=== PATIENT | male | born 1965 | race Caucasian/White ===

== ENCOUNTER 2021-04-06 07:45 | Emergency (ER) | payer MEDICAID, OTHER, SELFPAY ==
[~2021-04-06] VITALS: Ht 170.2 cm; Wt 83.9 kg
[2021-04-06] MEDS ORDERED: ESCITALOPRAM (08:01)
[2021-04-06] MEDS ORDERED: WARF-23 (08:01)
[2021-04-06] MEDS ORDERED: GABA-282 (08:01)
[2021-04-06] MEDS ORDERED: HYDR12.55 (08:01)
[2021-04-06] MEDS ORDERED: LOSA25TA14 (08:01)
[2021-04-06] MEDS ORDERED: ONDANSETRON 4MG/2ML VIAL IV ONE (08:15)
[2021-04-06] MEDS ORDERED: fentaNYL 100 MCG/2 ML INJECTION (J3010) IV PRN (08:15)
[2021-04-06 08:38] LABS: ABG BASE EXCESS -2.5 (-2.0-2.0); ABG HCO3 21.5 MEQ/L (22.0-26.0); ABG O2 SATURATION 99.5 % (95.0-99.0); ABG PARTIAL PRESSURE CO2 35.1 mmHg (35.0-45.0); ABG PARTIAL PRESSURE O2 230.6 mmHg (75.0-100.0); ABG STANDARD HCO3 22.5 MEQ/L (22.0-26.0); ABG TOTAL CO2 22.6 MEQ/L (22.0-29.0); ABG pH (ARTERIAL) 7.406 UNITS (7.350-7.450)
[2021-04-06 08:39] LABS: APPEARANCE, URINE CLEAR (CLEAR); BACTERIA, URINE AUTO NEGATIVE (NEGATIVE); BILIRUBIN, URINE AUTO NEGATIVE (NEGATIVE); BLOOD, URINE BLOOD NEGATIVE (NEGATIVE); COLOR, URINE YELLOW (YELLOW); GLUCOSE, URINE (UA) AUTO NEGATIVE (NEGATIVE); KETONE, URINE AUTO NEGATIVE (NEGATIVE); LEUKOCYTE ESTERASE, URINE AUTO NEGATIVE (NEGATIVE); NITRITE, URINE AUTO NEGATIVE (NEGATIVE); PROTEIN, URINE AUTO NEGATIVE (NEGATIVE); RBC, URINE AUTO 1 /HPF (0-3); SPECIFIC GRAVITY URINE AUTO 1.014 (1.002-1.035); SQUAMOUS EPITHELIAL CELL UR AU 0 /HPF (0-6); WBC, URINE AUTO 0 /HPF (0-3)
[2021-04-06] MEDS ORDERED: ISOVUE-370 76% 100ML VIAL As Ordered ONE (08:40)
[2021-04-06 08:42] LABS: BASO % 0.4 % (0.0-1.0); EOS # 0.2 10^3/uL (0.0-0.5); HEMOGLOBIN 14.4 g/dl (13.5-17.5); LYMPH # 1.9 10^3/uL (1.5-5.0); LYMPH % 22.6 % (24.0-44.0); MEAN CORPUSCULAR HGB CONC 34.3 g/dl (32.0-36.5); MEAN CORPUSCULAR VOLUME 90.3 fl (80.0-96.0); MONO # 0.9 10^3/uL (0.0-0.8); MONO % 11.2 % (2.0-8.0); NEUTROPHILS # 5.4 10^3/uL (1.5-8.5); NEUTROPHILS % 63.4 % (36.0-66.0); PLATELET COUNT, AUTOMATED 217 10^3/uL (150-450); RED BLOOD COUNT 4.65 10^6/uL (4.30-6.10); WHITE BLOOD COUNT 8.4 10^3/uL (4.0-10.0)
--- NOTE | 2021-04-06 08:49 | REP ---
INDICATION: Trauma COMPARISON: None. TECHNIQUE: Portable AP view of the chest FINDINGS: The mediastinum and cardiac silhouette are within normal limits for portable technique. The lung shea are clear without acute consolidation, effusion, or pneumothorax. Skeletal structures are intact. IMPRESSION: No acute cardiopulmonary process appreciated. <Electronically signed by César Schneider > 04/06/21 [id number]
[2021-04-06 09:06] LABS: ALBUMIN 3.6 GM/DL (3.2-5.2); ALT/SGPT 23 U/L (12-78); AMYLASE 35 U/L (25-115); BILIRUBIN,DIRECT < 0.1 MG/DL (0.0-0.2); BILIRUBIN,TOTAL 0.5 MG/DL (0.2-1.0); CK-MB VALUE MASS 1.4 NG/ML (<3.6); CPK CREATINE PHOSPHOKINASE 280 U/L (39-308); LIPASE 98 U/L (73-393); TOTAL PROTEIN 7.2 GM/DL (6.4-8.2); TROPONIN I < 0.02 NG/ML (< 0.10)
--- NOTE | 2021-04-06 09:19 | REP ---
INDICATION: Trauma COMPARISON: None TECHNIQUE: Axial contrast enhanced images from the thoracic inlet to the upper abdomen with coronal and sagittal reformations using 75 ml Isovue 370 intravenous contrast material. This CT examination was performed using the following dose reduction techniques: Automated exposure control, adjustment of mA and/or kv according to the patient's size, and use of iterative reconstruction technique. FINDINGS: The bilateral lung shea are well aerated and clear. No consolidation/contusion, effusion, or pneumothorax. Tracheobronchial tree is patent. The mediastinum demonstrates normal thoracic aorta, pulmonary vasculature, and heart/pericardium. No mediastinal trauma/hematoma or infiltrative changes are appreciated. No significant adenopathy. Osseous structures appear intact and without obvious acute injury. IMPRESSION: No evidence for acute chest pathology or trauma/injury. <Electronically signed by César Schneider > 04/06/21 0964
--- NOTE | 2021-04-06 09:23 | REP ---
INDICATION: Trauma. COMPARISON: None TECHNIQUE: Axial contrast-enhanced images from the lung bases to the pubic symphysis using 100 cc Isovue 370 intravenous contrast material. Coronal and sagittal reformations obtained. This CT examination was performed using the following dose reduction techniques: Automated exposure control, adjustment of mA and/or kv according to the patient's size, and the use of iterative reconstruction technique. FINDINGS: No evidence for solid organ injury. Liver, spleen, pancreas, gallbladder, bilateral adrenal glands and kidneys are normal. Incidental 1 cm left renal cyst noted. The enteric system including stomach, small, and large bowel appears normal. No evidence for obstruction or acute inflammatory process. Normal terminal ileum and appendix are identified in the right lower quadrant. Diverticulosis without evidence for acute diverticulitis. Pelvis demonstrates normal bladder and age-appropriate prostate/seminal vesicles. No ascites. No free air. No intraperitoneal or retroperitoneal adenopathy. Abdominal aorta and vasculature appear normal. Sagittal views demonstrate loss of superior vertebral body height involving L1 and L2 which represent relatively new findings as compared with MRI dated 16/05 and suggest acute compression injuries. Correlation is required. IMPRESSION: 1. Acute versus chronic compression deformities at L1 and L2 require further investigation. 2. No further acute abdominopelvic pathology/trauma appreciated. 3. Diverticulosis. 4. Incidental left renal cyst. <Electronically signed by César Schneider > 04/06/21 0919
--- NOTE | 2021-04-06 09:25 | REP ---
INDICATION: Trauma COMPARISON: None. TECHNIQUE: Axial noncontrast images from the skull base to the thoracic inlet with coronal and sagittal re-formations This CT examination was performed using the following dose reduction techniques: Automated exposure control, adjustment of mA and/or kv according to the patient's size, and use of iterative reconstruction technique. FINDINGS: Evidence for prior anterior fixation at C3-C5. Early advanced degenerative changes at C5-6 and C6-7 includes endplate sclerosis with disc space narrowing, facet hypertrophy and osteophytosis. Alignment and lordosis maintained. No acute fracture/compression injury or subluxation. Posterior elements and spinous processes are intact. Spinal canal is grossly patent. IMPRESSION: 1. Prior fixation and multifocal degenerative changes. 2. No acute cervical trauma/injury appreciated. <Electronically signed by César Schneider > 04/06/21 0994
[2021-04-06 09:27] LABS: INR 2.57; PROTHROMBIN TIME 27.9 SECONDS (12.7-14.5)
[2021-04-06 09:28] LABS: PARTIAL THROMBOPLASTIN TIME 43.8 SECONDS (25.9-37.0)
--- NOTE | 2021-04-06 09:31 | REP ---
INDICATION: Trauma COMPARISON: None. TECHNIQUE: Axial noncontrast images from the skull base to the vertex with coronal reformations. This CT examination was performed using the following dose reduction techniques: Automated exposure control, adjustment of mA and/or kv according to the patient's size, and use of iterative reconstruction technique. FINDINGS: The ventricles, sulci, and cisterns are normal in position and appearance. Roberson-white differentiation is maintained. No acute intracranial hemorrhage, mass/mass effect, pathology or trauma/injury. No evidence for acute infarction. Subtle increased density along the falx and tentorium is likely chronic and less likely reflecting subdural. Calvarium is intact. Paranasal sinuses and mastoid air cells are clear. IMPRESSION: No definite evidence for acute intracranial pathology or trauma/injury. As above. If there is concern for subdural hemorrhage a repeat examination in 6-12 hours may be considered. <Electronically signed by César Schneider > 04/06/21 0921
--- NOTE | 2021-04-06 10:48 | REPVR ---
PROCEDURE INFORMATION: Exam: CT Thoracic Spine Without Contrast Exam date and time: 04/06/2021 8:13 AM Age: 55 years old Clinical indication: Injury or trauma; Fall; Blunt trauma (contusions or hematomas) TECHNIQUE: Imaging protocol: Computed tomography images of the thoracic spine without contrast. Radiation optimization: All CT scans at this facility use at least one of these dose optimization techniques: automated exposure control; mA and/or kV adjustment per patient size (includes targeted exams where dose is matched to clinical indication); or iterative reconstruction. COMPARISON: CR PORTABLE CHEST X-RAY 04/06/2021 8:33 AM FINDINGS: Vertebrae: No acute fracture. Normal alignment. Diffuse demenaralization of bones, DJD. Discs/Spinal canal/Neural foramina: No significant disc protrusion. No severe spinal canal stenosis. No significant neural foraminal narrowing. Soft tissues: Unremarkable. IMPRESSION: No acute fracture or subluxation. Electronically signed by: Mita Leon On 04/06/2021 10:48:11 AM
--- NOTE | 2021-04-06 10:58 | REPVR ---
PROCEDURE INFORMATION: Exam: CT Lumbar Spine Without Contrast Exam date and time: 04/06/2021 8:13 AM Age: 55 years old Clinical indication: Injury or trauma; Fall; Blunt trauma (contusions or hematomas) TECHNIQUE: Imaging protocol: Computed tomography images of the lumbar spine without contrast. Radiation optimization: All CT scans at this facility use at least one of these dose optimization techniques: automated exposure control; mA and/or kV adjustment per patient size (includes targeted exams where dose is matched to clinical indication); or iterative reconstruction. COMPARISON: CT Abdomen with contrast 01/15/2010 9:09 PM FINDINGS: Vertebrae: 50% loss of height of superior end plate of L1 without retropulsion. 25% loss of height of superior end plate of L2 without retropulsion.Nondisplaced fracture of the transverse process of L2. Discs/Spinal canal/Neural foramina: No significant disc protrusion. No severe spinal canal stenosis. No significant neural foraminal narrowing. Soft tissues: Unremarkable. IMPRESSION: 50% loss of height of superior end plate of L1 without retropulsion. 25% loss of height of superior end plate of L2 without retropulsion.Nondisplaced fracture of the transverse process of L2. Electronically signed by: Mita Leon On 04/06/2021 10:58:25 AM
[2021-04-06 11:00] VITALS: BP 128/78
--- NOTE | 2021-04-06 13:10 | REPVR ---
PROCEDURE INFORMATION: Exam: MR Lumbar Spine Without Contrast Exam date and time: 04/06/2021 12:29 PM Age: 55 years old Clinical indication: Low back pain; Additional info: RO epidural hematoma TECHNIQUE: Imaging protocol: Multiplanar magnetic resonance images of the lumbar spine without intravenous contrast. COMPARISON: CT Spine, lumbar w/o contrast 04/06/2021 8:51 AM FINDINGS: Vertebrae: There are moderate L1 and mild L2 compression deformities, chronic. There are superimposed Schmorl's nodes along the superior endplates of the L1 and L2 bodies. Normal vertebral body heights are otherwise preserved. There is minimal retrolisthesis of L5 with respect to S1. There are small, scattered hemangiomas. Spinal cord: Normal signal. No cord compression. L1-L2: There is diffuse disc bulging. There is mild facet hypertrophy. There is mild canal stenosis. The neural foramina are patent. L2-L3: There is diffuse disc bulging. There is moderate facet hypertrophy. There is mild bilateral neural foraminal narrowing. L3-L4: There is diffuse disc bulging with a left paracentral annular tear. There is moderate facet hypertrophy. There is moderate right and mild left neural foraminal narrowing. L4-L5: There is diffuse disc bulging. There is moderate facet and ligamentous hypertrophy. There is mild canal stenosis. There is moderate right and mild left neural foraminal narrowing. L5-S1: There is diffuse disc bulging/uncovering related to listhesis with a focal left inferior subarticular disc extrusion. There is effaces the left lateral recess, with potential compromise of the left S1 nerve root. Soft tissues: Unremarkable. IMPRESSION: 1. Chronic moderate L1 and mild L2 compression deformities. 2. Left inferior subarticular disc extrusion at L5/S1 results in potential compromise of the left S1 nerve root. Correlation with clinical symptoms is recommended. Electronically signed by: Amanda Solorzano On 04/06/2021 13:09:34 PM
--- NOTE | 2021-04-06 13:57 | REPVR ---
PROCEDURE INFORMATION: Exam: MR Thoracic Spine Without Contrast Exam date and time: 04/06/2021 12:29 PM Age: 55 years old Clinical indication: Pain in thoracic spine; Without myelpathy or radiculopathy; Additional info: Back trauma per ortho spine TECHNIQUE: Imaging protocol: Multiplanar magnetic resonance images of the thoracic spine without intravenous contrast. COMPARISON: CT Spine,thoracic w/o contrast 04/06/2021 8:51 AM FINDINGS: Vertebrae: Superior endplate depression at L1 is seen to better advantage on concurrent MRI lumbar spine reported separately. There is no acute thoracic fracture or listhesis. Aside from scattered hemangiomas, marrow signal is within normal limits. Spinal cord: Normal signal. No cord compression. T1-T2: There is diffuse disc bulging. There is mild facet hypertrophy. There is moderate bilateral neural foraminal narrowing. T2-T3: There is shallow disc bulging. There is mild facet hypertrophy. There is mild bilateral neural foraminal narrowing. T3-T4: There is shallow disc bulging. There is mild facet hypertrophy. There is mild right and moderate left neural foraminal narrowing. T4-T5: No significant disc disease. No significant spinal canal stenosis. T5-T6: No significant disc disease. No significant spinal canal stenosis. T6-T7: No significant disc disease. No significant spinal canal stenosis. T7-T8: There is shallow disc bulging. There is mild facet hypertrophy. The spinal canal and neural foramina are patent. T8-T9: No significant disc disease. No significant spinal canal stenosis. T9-T10: There is shallow disc bulging. There is mild facet hypertrophy. There is moderate bilateral neural foraminal narrowing. T10-T11: There is diffuse disc bulging with right foraminal component. There is moderate facet hypertrophy. There is moderate to severe bilateral neural foraminal narrowing. There is mild canal stenosis. T11-T12: There is shallow disc bulging and moderate facet hypertrophy. There is mild bilateral neural foraminal narrowing. Soft tissues: Unremarkable. IMPRESSION: 1. No acute fracture. 2. Degenerative disc disease and spondylosis. At T10/11, there is moderate to severe bilateral neural foraminal narrowing and mild canal stenosis. Electronically signed by: Amanda Solorzano On 04/06/2021 13:56:47 PM
[2021-04-06] MEDS ORDERED: MORPHINE 4 MG/ML 1ML VIAL/SYRINGE (J2270) IV ONE (14:25)
[2021-04-06] MEDS ORDERED: PERC5TAB12 PO (15:33)
--- NOTE | 2021-04-06 19:18 | ECGEPIP ---
[facility] - ED Test Date: 2021-04-06 Pat Name: JERROD MORRELL Department: Room: - Gender: Male Tax Advisor: tamika : 1965 Requested By: Chapo Platt Order Number: [id number] Reading MD: Chapo Platt Measurements Intervals [place] Rate: 59 P: 21 WA: 176 QRS: -17 QRSD: 88 T: 27 QT: 414 QTc: 409 Interpretive Statements Sinus bradycardia low qrs voltage limb leads Nonspecific ST T wave changes Delayed R wave progression No prior ECG for comparison Electronically Signed on 04-06-2021 19:18:14 EDT by Chapo Platt
== END 2021-04-06 16:19 | disposition home or self-care (01) ==
LOC: M ED 07:45
DX: S20.229A Contusion of unspecified back wall of thorax, initial encounter (principal); S30.1XXA Contusion of abdominal wall, initial encounter; W01.0XXA Fall on same level from slipping, tripping and stumbling without subsequent striking against object, initial encounter; Y92.89 Other specified places as the place of occurrence of the external cause; M51.37 Other intervertebral disc degeneration, lumbosacral region; I10 Essential (primary) hypertension; E78.9 Disorder of lipoprotein metabolism, unspecified; Z88.5 Allergy status to narcotic agent; Z79.899 Other long term (current) drug therapy; Z79.01 Long term (current) use of anticoagulants
CPT/HCPCS: 36600; 70450; 71045; 71260; 72125; 72128; 72131; 72146; 72148; 74177; 80047; 80076; 81001; 82150; 82550; 82553; 82803; 83605; 83690; 85025; 85610; 85730; 86850; 86900; 86901; 93005; 93041; 96374; 96375; 99285; J2270; J2405; J3010; Q9967

== ENCOUNTER → 2021-04-20 | Outpatient (CLI) | payer MEDICAID ==
[~2021-04-20] MED LIST: ESCITALOPRAM; GABA-282; HYDR12.55; LOSA25TA14; PERC5TAB12 PO; WARF-23
== END ==
LOC: M PAIN 14:45
PROVIDERS: ATTEND Nurse Practitioner Family
DX: M51.16 Intervertebral disc disorders with radiculopathy, lumbar region (principal); Z79.899 Other long term (current) drug therapy; Z88.5 Allergy status to narcotic agent; Z79.01 Long term (current) use of anticoagulants; Z86.711 Personal history of pulmonary embolism; Z86.718 Personal history of other venous thrombosis and embolism

== ENCOUNTER 2021-04-28 14:14 | Emergency (ER) | payer MEDICAID, OTHER, SELFPAY ==
[~2021-04-28] VITALS: Ht 170.2 cm; Wt 82.0 kg
[2021-04-28 14:15] VITALS: BP 139/81
--- OUTSIDE RECORDS SUMMARY | 2021-04-28 14:20 | CCD | Continuity of Care Document ---
Author Author Omar FRANCISCO DO Organization Unknown Address [address] [place] [address], [facility] [place] [address] Phone [phone] Care Team Providers Care Alcohol Law Enforcement Agent Name Role Phone Jesus Egan M.D. AUTM [phone] Problems Active Problems Provider Date Essential hypertension Ottoniel Francisco DO Onset: 04/10/20 21 Social History Type Date Description Comments Sex Unknown Cigarette Use Non Smoker ETOH Use 2 A Day Recreational Drug Use Medical Marijuana Allergies and adverse reactions Active Allergies Criticality Reaction | Severity Comments Date Codeine Unable to assess criticality rash, redness, itching 04/10/2021 Inactive Allergies NKDA Unable to assess criticality 04/10/2021 Medications Active Medications SIG Qnty Indications Ordering Provide r Date Warfarin Sodium 5mg Tablets Jesus Egan M.D. Escitalopram Oxalate 10mg Tablets Jesus Egan M.D. Gabapentin 300mg Capsules Jesus Egan M.D. Hydrochlorothiazide 12.5mg Tablets Jesus Egan M.D. Losartan Potassium 25mg Tablets Jesus Egan M.D. Vicodin 5-300mg Tablets Unknown Immunizations Description No Information Available Vital Signs Date Vital Result Comment 04/10/2021 10:22am Body Temperature 98.0 F Results Description No Information Available Procedures Date Code Description Status 04/10/2021 72049 Office/Outpatient New Moderate M DM 45-59 Minutes Completed Medical Devices Description No Information Available Encounters Type Date Location Provider Dx Diagnosis Office Visit 04/10/2021 11:00a [facility] Mel Francisco DO M51.16 Intervertebral disc disorders w radiculo manny, lumbar region Assessments Date Code Description Provider 04/10/2021 M51.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 Recent slip and fall. No acute fractures. MRI shows L5-S1 left-sided disc extrusion. Symptoms of S1 radiculopathy left leg. Discussed nonoperative management. Offered referral to pain management. Discuss surgical discectomy if nonoperative management fails. Patient would like to continue with nonoperative management and avoid surgery if possible. Patient given card to call for follow-up appointment if he would like to discuss surgery. Functional Status Description No Information Available Mental Status Description No Information Available Referrals Refer to Reason for Referral Status Appt Date Beto Caal MD Chronic back pain. Chronic L1-L2 compression fractures. L5-S1 disc herniation possibly S1 radiculopathy Closed 04/20/[address] [facility] [place] [address] [phone]"
--- OUTSIDE RECORDS SUMMARY | 2021-04-28 14:20 | CCD ---
Author Organization Unknown Address [address] [place] [address] Phone [phone] Care Team Providers Care Nursing Assistants Teacher Name Role Phone Jesus Egan Unavailable Unavailable Allergies Code Code System Name Reaction Severity Status Onset 2669 RxNorm Codeine Rash Active Medications Name Status Start Date Stop Date Advair Diskus 250 mcg-50 mcg/dose powder for inhalation Inhale 1 puff twice a day by inhalation route. Active Not available Eliquis 5 mg tablet Take 1 tablet twice a day by oral route. Active Not available escitalopram 10 mg tablet Take 1 tablet every day by oral route. Active Not available gabapentin 300 mg capsule 3 po tid. Active Not available hydrochlorothiazide 12.5 mg tablet Take 1 tablet every day by oral route. Active Not available losartan 25 mg tablet Take 1 tablet every day by oral route. 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 Past Encounters 03/23/2021 Chronic Low Back Pain; Recurrent Pulmonary Embolism; Depressive Disorder; Benign Essential Hypertension Jesus Egna MD: [address] [place] [address], Ph. Social History Tobacco Smoking Status Never Smoker Vaccine List Notes: pt had covid may 2020, and h ad a blood clot, pt would like to discuss Plan of Care Reminders Provider Appointments None recorded. Lab None recorded. Referral None recorded. Procedures None recorded. Surgeries None recorded. Imaging None recorded. Vitals Height Weight BMI Blood Pressure 67 in 181 lbs 16 oz 28.5 kg/m2 130/84 mm[Hg]
--- OUTSIDE RECORDS SUMMARY | 2021-04-28 14:20 | CCD ---
Author Organization Unknown Address [address] [place] [address] Phone [phone] Care Team Providers Care Radiation Protection Specialist Name Role Phone Jesus Egan Unavailable Unavailable [...] Active Not available escitalopram 10 mg tablet TAKE 1 TABLET BY MOUTH ONCE DAILY Active Not a vailable gabapentin 300 mg capsule TAKE 3 CAPSULES BY MOUTH THREE TIMES DAILY Active Not available hydrochlorothiazide 12.5 mg tablet TAKE 1 TABLET BY MOUTH ONCE DAILY Active Not a vailable losartan 25 mg tablet TAKE 1 TABLET BY MOUTH ONCE DAILY Active Not a vailable warfarin 5 mg tablet TAKE 1 TABLET BY MOUTH ONCE DAILY Active Not a vailable Notes: albuterol inhalor, powder inhalor Problems Name Status Onset Date Source Depressive Disorder Active 03/23/2021 Benign Essential Hypertension Active 03/23/2021 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 Past Encounters 03/30/2021 Jesus Egan MD: [address] [place] [address], Ph. 03/23/2021 Chronic Low Back Pain; Recurrent Pulmonary Embolism; Depressive Disorder; Benign Essential Hypertension Jesus Egan MD: [address] [place] [address], Ph. Social History Tobacco Smoking Status Never Smoker Vaccine List Notes: pt had covid may 2020, and h ad a blood clot, pt would like to discuss Plan of Care Reminders Provider Appointments None recorded. Lab None recorded. Referral None recorded. Procedures None recorded. Surgeries None recorded. Imaging None recorded. Vitals 03/30/2021 08:40AM NURSE LAB COLLECTION Height 67 in 03/23/2021 11:20AM NEW ACUTE 20 Height Weight BMI Blood Pressure 67 in 181 lbs 16 oz 28.5 kg/m2 130/84 mm[Hg]
--- OUTSIDE RECORDS SUMMARY | 2021-04-28 14:20 | CCD | Continuity of Care Document ---
Author Author Omar FRANCISCO DO Organization Unknown Address [address] [place] [address], [facility] [place] [address] Phone [phone] Care Team Providers Care Sr. Merchandise Planner Name Role Phone Jesus Egan M.D. AUTM [phone] Problems Active Problems Provider Date Essential hypertension [...] F Results Description No Information Available Procedures Description No Information Available Medical Devices Description No Information Available Encounters Description No Information Available Assessments Date Code Description Provider 04/10/2021 M51.16 [...] fractures. L5-S1 disc herniation possibly S1 radiculopathy Sent [address] [facility] [place] [address] [phone]"
--- OUTSIDE RECORDS SUMMARY | 2021-04-28 14:20 | CCD | Continuity of Care Document ---
Author Author Omar FRANCISCO DO Organization Unknown Address [address] [place] [address], [facility] [place] [address] Phone [phone] Care Team Providers Care Over The Road Driver Name Role Phone Jesus Egan M.D. AUTM [phone] Problems Active Problems Provider Date Essential hypertension [...] disc herniation possibly S1 radiculopathy Sent [address] [facility] [place] [address] [phone]
--- OUTSIDE RECORDS SUMMARY | 2021-04-28 14:20 | CCD ---
Author Organization Unknown Address [address] [place] [address] Phone [phone] Care Team Providers Care Ready To Wear Department Manager Name Role Phone Jesus Egan Unavailable Unavailable [...] ONCE DAILY Active Not a vailable warfarin 4 mg tablet Take 1 tablet every day by oral route. Active Not available warfarin 5 mg tablet TAKE 1 TABLET BY MOUTH ONCE DAILY Active Not a vailable Notes: albuterol inhalor, powder inhalor Problems Name Status Onset Date Source Depressive Disorder Active 03/23/2021 Benign Essential Hypertension Active 03/23/2021 Recurrent Pulmonary Embolism Active 03/23/2021 Chronic Low Back Pain Active 03/23/2021 Procedures Notes: pt had infusion on neck June 28, hernia surgery childhood Results Lab Results Date Name Specimen Result Interpretation Description Value Range Status Address 04/07/2021 PT/INR Blood venous High Inr 4.0 Final [facility]: [address] [facility] Blood venous High Pt 39.5 sec 9.0-11.5 sec Fi critical access hospital [facility] [address] [facility] 03/30/2021 PT/INR Blood venous High Inr 1.5 Final [facility]: [address] [facility] Blood venous High Pt 15.3 sec 9.0-11.5 sec Fi critical access hospital [facility]: [address] [place] [facility] 03/30/2021 Lipid Panel, Serum Blood venous High Triglycerid es 209 mg/dL <150 mg/dL Final [facility]: [address] [facility] Blood venous High Cholesterol, Total 211 mg/dL <200 mg/dL Final [facility]: [address] [facility] Blood venous Normal HDL Cholesterol 42 mg/dL > or = 40 mg/dL Final [facility]: [address] [facility] Blood venous High LDL-cholesterol 134 mg/dL (ca lc) Final [facility]: [address] [facility] Blood venous High Chol/hdlc Ratio 5.0 (calc) <5 .0 (calc) Final [facility]: [address] [facility] Blood venous High Non HDL Cholesterol 169 mg/dL (calc) <130 mg/dL (calc) Final [facility]: [address] [facility] 03/30/2021 CMP, Serum or Plasma Blood venous High Glucose 101 mg/dL 65-99 mg/dL Final [facility]: [address] [facility] Blood venous Normal Urea Nitrogen (BUN) 21 mg/dL 7-25 mg/dL Final [facility]: [address] [facility] Blood venous Normal Creatinine 0.93 mg/dL 0.70-1. 33 mg/dL [facility]: [address] [facility] Blood venous Normal eGFR Non-afr. [place] Islander 9 3 mL/min/1.73m2 > or = 60 mL/min/1.73m2 Final [facility]: [address] [facility] Blood venous Normal eGFR 10 8 mL/min/1.73m2 > or = 60 mL/min/1.73m2 Final [facility]: [address] [facility] Blood venous BUN/creatinine Ratio not applicable (calc) 6-22 (calc) Final [facility]: [address] [facility] Blood venous Normal Sodium 140 mmol/L 135-146 mmo l/L Final [facility]: [address] [place] [facility] Blood venous Normal Potassium 4.6 mmol/L 3.5-5.3 mmol/L Final [facility]: [address] [facility] Blood venous Normal Chloride 107 mmol/L 98-110 mm ol/L Final [facility]: [address] [facility] Blood venous Normal Carbon Dioxide 27 mmol/L 20-3 2 mmol/L Final [facility]: [address] [facility] Blood venous Normal Calcium 9.4 mg/dL 8.6-10.3 mg /dL [facility]: [address] [facility] Blood venous Normal Protein, Total 6.5 g/dL 6.1-8 .1 g/dL [facility]: [address] [facility] Blood venous Normal Albumin 4.3 g/dL 3.6-5.1 g/dL [facility]: [address] [facility] Blood venous Normal Globulin 2.2 g/dL (calc) 1.9- 3.7 g/dL (calc) [facility]: [address] [facility] Blood venous Normal Albumin/globulin Ratio 2 .0 (calc) 1.0-2.5 (calc) [facility]: [address] [facility] Blood venous Normal Bilirubin, Total 0.3 mg/dL 0. 2-1.2 mg/dL [facility]: [address] [facility] Blood venous Normal Alkaline Phosphatase 62 U/L 3 5-144 U/L Final [facility]: [address] [facility] Blood venous Normal Ast 15 U/L 10-35 U/L [facility]: [address] [facility] Blood venous Normal Alt 15 U/L 9-46 U/L Final [facility]est [facility]: [address] [facility] 03/30/2021 TSH, Serum or Plasma Blood venous Normal TSH W/reflex to FT4 4.30 mIU/L 0.40-4.50 mIU/L Final [facility]: [address] [facility] PT/INR Blood venous High Inr 2.6 Final [facility]: [address] [facility] Blood venous High Pt 26.6 sec 9.0-11.5 sec Fi nal [facility]: [address] [facility] Past Encounters 04/08/2021 Jesus Egan MD: [address] [place] [phone], Ph. 04/03/2021 Jesus Egan MD: [address] [place] [address], Ph. 03/30/2021 Jesus Egan MD: [address] [place] [address], Ph. 03/23/2021 Chronic Low Back Pain; Recurrent Pulmonary Embolism; Depressive Disorder; Benign Essential Hypertension Jesus Egan MD: [address] [place] [address], Ph. Social History Tobacco Smoking Status Never [...]
--- OUTSIDE RECORDS SUMMARY | 2021-04-28 14:20 | CCD | Continuity of Care Document ---
Author Author Omar FRANCISCO DO Organization Unknown Address [address] [place] [address], [facility] [place] [address] Phone [phone] Care Team Providers Care Visual Lead Name Role Phone Jesus Egan M.D. AUTM [phone] Problems Active Problems Provider Date Essential hypertension [...] disc herniation possibly S1 radiculopathy Sent [address] [facility] [place] [address] [phone]"
--- OUTSIDE RECORDS SUMMARY | 2021-04-28 14:20 | CCD | Continuity of Care Document ---
Author Author Omar FRANCISCO DO Organization Unknown Address [address] [place] [address], [facility] [place] [address] Phone [phone] Care Team Providers Care Pace Analyst Name Role Phone Jesus Egan M.D. AUTM [phone] Problems Active Problems Provider Date Essential hypertension [...] disc herniation possibly S1 radiculopathy Sent [address] [facility] [place] [address] [phone]"
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
--- OUTSIDE RECORDS SUMMARY | 2021-04-28 14:20 | CCD ---
Author Organization Unknown Address [address] [place] [address] Phone [phone] Care Team Providers Care Cork Pressing Machine Operator Name Role Phone Jesus Egan Unavailable Unavailable [...] Result Interpretation Description Value Range Status Address 03/30/2021 PT/INR Blood venous High Inr 1.5 Final [facility] [address] [facility] venous High Pt 15.3 sec 9.0-11.5 sec Fi nal [facility] Lipid Panel, Serum Blood venous High Triglycerid es 209 mg/dL <150 mg/dL [facility] [address] [facility] Blood venous High Cholesterol, Total 211 mg/dL <200 mg/dL Final [employer]: [address] [facility] Blood venous Normal HDL Cholesterol 42 mg/dL > or = 40 mg/dL Final [facility]: [address] [facility] Blood venous High LDL-cholesterol 134 mg/dL (ca lc) Final [facility]: [address] [facility] Blood venous High Chol/hdlc Ratio 5.0 (calc) <5 .0 (calc) Final [facility]: [address] [facility] Blood venous High Non HDL Cholesterol 169 mg/dL (calc) <130 mg/dL (calc) Final [facility]: [address] [place] [facility] 03/30/2021 CMP, Serum or Plasma Blood venous High Glucose 101 mg/dL 65-99 mg/dL Final [facility]: [address] [facility] Blood venous Normal Urea Nitrogen (BUN) 21 mg/dL 7-25 mg/dL Final [facility]: [address] [facility] Blood venous Normal Creatinine 0.93 mg/dL 0.70-1. 33 mg/dL [facility]: [address] [facility] Blood venous Normal eGFR Non-afr. Venezuelan 9 3 mL/min/1.73m2 > or = 60 mL/min/1.73m2 Final [facility]: [address] [facility] Blood venous Normal eGFR 10 8 mL/min/1.73m2 > or = 60 mL/min/1.73m2 Final [facility]: [address] [facility] Blood venous BUN/creatinine Ratio not applicable (calc) 6-22 (calc) [facility]: [address] [facility] Blood venous Normal Sodium 140 mmol/L 135-146 mmo l/L Final [facility]: [address] [facility] Blood venous Normal Potassium 4.6 mmol/L 3.5-5.3 mmol/L Final [facility]: [address] [facility] Blood venous Normal Chloride 107 mmol/L 98-110 mm ol/L Final [facility]: [address] [facility] Blood venous Normal Carbon Dioxide 27 mmol/L 20-3 2 mmol/L [facility]: [address] [facility] Blood venous Normal Calcium 9.4 mg/dL 8.6-10.3 mg /dL Final [facility]: [address] [facility] Blood venous Normal Protein, Total 6.5 g/dL 6.1-8 .1 g/dL Final [facility]: [address] [facility] Blood venous Normal Albumin 4.3 g/dL 3.6-5.1 g/dL Final [facility]: [address] [facility] Blood venous Normal Globulin 2.2 g/dL (calc) 1.9- 3.7 g/dL (calc) Final [facility]: [address] [facility] Blood venous Normal Albumin/globulin Ratio 2 .0 (calc) 1.0-2.5 (calc) Final [facility]: [address] [facility] Blood venous Normal Bilirubin, Total 0.3 mg/dL 0. 2-1.2 mg/dL Final [facility]: [address] [facility] Blood venous Normal Alkaline Phosphatase 62 U/L 3 5-144 U/L Final [facility]: [address] [facility] Blood venous Normal Ast 15 U/L 10-35 U/L Final [facility]: [address] [facility] Blood venous Normal Alt 15 U/L 9-46 U/L Final [facility]est [facility]: [address] [facility] 03/30/2021 TSH, Serum or Plasma Blood venous Normal TSH W/reflex to FT4 4.30 mIU/L 0.40-4.50 mIU/L Final [facility]: [address] [facility] Past Encounters 04/03/2021 Jesus Egan MD: [address] [place] [phone], Ph. 03/30/2021 Jesus Egan MD: [address] [place] [phone], Ph. 03/23/2021 Chronic Low Back Pain; Recurrent Pulmonary Embolism; Depressive Disorder; Benign Essential Hypertension Jesus Egan MD: [address] [place] [phone], Ph. Social History Tobacco Smoking Status Never [...]
--- OUTSIDE RECORDS SUMMARY | 2021-04-28 14:21 | CCD ---
Author Author [facility] Organization [facility] Address Unknown Phone Unavailable Care Team Providers Care Door Installer Name Role Phone Elena Egan MD Unavailable Unavailable Elena Egan MD Unavailable Unavailable Elena Egan MD Unavailable Unavailable Elena Egan MD Unavailable Unavailable Elena Egan MD Unavailable Unavailable Elena Egan MD Unavailable Unavailable Elena Egan MD Unavailable Unavailable Elena Egan MD Unavailable Unavailable Elena Egan MD Unavailable Unavailable Elena Egan MD Unavailable Unavailable Elena Egan MD Unavailable Unavailable Elena Egan MD Unavailable Unavailable Elena Egan MD Unavailable Unavailable Elena Egan MD Unavailable Unavailable Elena Egan MD Unavailable Unavailable Elena Egan MD Unavailable Unavailable Elena Egan MD Unavailable Unavailable Elena Egan MD Unavailable Unavailable Elena Egan MD Unavailable Unavailable Elena Egan MD Unavailable Unavailable Elena Egan MD Unavailable Unavailable Elena Egan MD Unavailable Unavailable Elena Egan MD Unavailable Unavailable Elena Egan MD Unavailable Unavailable Elena Egan MD Unavailable Unavailable Elena Egan MD Unavailable Unavailable Elena Egan MD Unavailable Unavailable Elena Egan MD Unavailable Unavailable Elena Egan MD Unavailable Unavailable Elena Egan MD Unavailable Unavailable Elena Egan MD Unavailable Unavailable Elena Egan MD Unavailable Unavailable Elena Egan MD Unavailable Unavailable EganElena MD Unavailable Unavailable EganElena MD Unavailable Unavailable EganElena MD Unavailable Unavailable Egan, Elena Lee MD Unavailable Unavailable Egan, Elena Lee MD Unavailable Unavailable Egan, Elena Lee MD Unavailable Unavailable Egan, Elena Lee MD Unavailable Unavailable Egan, Elena Lee MD Unavailable Unavailable Egan, Elena Lee MD Unavailable Unavailable Elena Egan MD Unavailable Unavailable Egan, Elena Lee MD Unavailable Unavailable Egan, Elena Lee MD Unavailable Unavailable Egan, Elena Lee MD Unavailable Unavailable Egan, Elena Lee MD Unavailable Unavailable Egan, Elena Lee MD Unavailable Unavailable Egan, Elena Lee MD Unavailable Unavailable Egan, Elena Lee MD Unavailable Unavailable EganElena MD Unavailable Unavailable EganElena MD Unavailable Unavailable Egan, Elena Lee MD Unavailable Unavailable Egan, Elena Lee MD Unavailable Unavailable Egan, Elena Lee MD Unavailable Unavailable Egan, Elena Lee MD Unavailable Unavailable Egan, Elena Lee MD Unavailable Unavailable Egan, Elena Lee MD Unavailable Unavailable Egan, Elena Lee MD Unavailable Unavailable Elena Egan MD Unavailable Unavailable EganElena MD Unavailable Unavailable EganElena MD Unavailable Unavailable EganElena MD Unavailable Unavailable Egan, Elena Lee MD Unavailable Unavailable EganElena MD Unavailable Unavailable EganElena MD Unavailable Unavailable Egan, Elena Lee MD Unavailable Unavailable EganElena MD Unavailable Unavailable Elena Egan MD Unavailable Unavailable EganElena MD Unavailable Unavailable EganElena MD Unavailable Unavailable EganElena MD Unavailable Unavailable Egan, Elena Lee MD Unavailable Unavailable EganElena MD Unavailable Unavailable Elena Egan MD Unavailable Unavailable Elena Egan MD Unavailable Unavailable Elena Egan MD Unavailable Unavailable Elena Egan MD Unavailable Unavailable EganElena MD Unavailable Unavailable EganElena MD Unavailable Unavailable EganElena MD Unavailable Unavailable EganElena MD Unavailable Unavailable EganElena MD Unavailable Unavailable Elena Egan MD Unavailable Unavailable Elena Egan MD Unavailable Unavailable Elena Egan MD Unavailable Unavailable Elena Egan MD Unavailable Unavailable Elena Egan MD Unavailable Unavailable Elena Egan MD Unavailable Unavailable Elena Egan MD Unavailable Unavailable Elena Egan MD Unavailable Unavailable Elena Egan MD Unavailable Unavailable Elena Egan MD Unavailable Unavailable SILVANA CUELLO MD Unavailable Unavailable SILVANA CUELLO MD Unavailable Unavailable Re-disclosure Warning The records that you are about to access may contain information from federally-assisted alcohol or drug abuse programs. If such information is present, then the following federally mandated warning applies: This information has been disclosed to you from records protected by federal confidentiality rules (42 CFR part 2). The federal rules prohibit you from making any further disclosure of this information unless further disclosure is expressly permitted by the written consent of the person to whom it pertains or as otherwise permitted by 42 CFR part 2. A general authorization for the release of medical or other information is NOT sufficient for this purpose. The Federal rules restrict any use of the information to criminally investigate or prosecute any alcohol or drug abuse patient.The records that you are about to access may contain highly sensitive health information, the redisclosure of which is protected by Article 27-F of the [facility] Public Health law. If you continue you may have access to information: Regarding HIV / AIDS; Provided by facilities licensed or operated by the [facility] Office of Mental Health; or Provided by the [facility] Office for People With Developmental Disabilities. If such information is present, then the following [facility] mandated warning applies: This information has been disclosed to you from confidential records which are protected by state law. State law prohibits you from making any further disclosure of this information without the specific written consent of the person to whom it pertains, or as otherwise permitted by law. Any unauthorized further disclosure in violation of state law may result in a fine or fci sentence or both. A general authorization for the release of medical or other information is NOT sufficient authorization for further disc losure. Allergies and Adverse Reactions Type Description Substance Reaction Status Data Source(s ) Drug Allergy Drug Allergy NKDA MEDENT ([facility], ) Encounters Encounter Providers Location Date Indications Data Source(s ) Outpatient [address] [facility] [id number] 04/20/2021 12:00:00 AM EDT eCW1 ([facility]) Outpatient Attender: SILVANA Mercado/Katherine/Paul/ Reinsherley 04/10/2021 11:00:00 AM EDT MEDENT ([facility] Jesus Egan MD: [address] [place] [phone], Ph. Attender: Jesus Egan MD [facility] Medical 04/08/2021 12:00:00 AM EDT Z[facility] ([facility]) Jesus Egan MD: [address] [place] [address], Ph. Attender: Jesus Egan MD [facility] Medical 04/03/2021 12:00:00 AM EDT [facility]EN[facility] ([facility]) Jesus Egan MD: [address] [place] [address], Ph. Attender: Jesus Egan MD [facility] Medical 04/03/2021 12:00:00 AM EDT Z[facility]IA ([facility]) Jesus Egan MD: [address] [place] [address], Ph. Attender: Jesus Egan MD [facility] Medical 03/30/2021 12:00:00 AM EDT [facility] ([facility]) Jesus Egan MD: [address] [place] [address], Ph. Attender: Jesus Egan MD [facility] Medical 03/30/2021 12:00:00 AM EDT [facility] ([facility]) Jesus Egan MD: [address] [place] [address], Ph. Attender: Jesus Egan MD [facility] Medical 03/30/2021 12:00:00 AM EDT [facility] ([facility]) Jesus Egan MD: [address] [place] [address], Ph. Attender: Jesus Egan MD [facility] Medical 03/23/2021 12:00:00 AM EDT Z[facility] ([facility]) Jesus Egan MD: [address] [place] [address], Ph. Attender: Jesus Egan MD [facility] Medical 03/23/2021 12:00:00 AM EDT [facility] ([facility]) Jesus Egan MD: [address] [place] [address], Ph. Attender: Jesus Egan MD [facility] Medical 03/23/2021 12:00:00 AM EDT [place] ([facility]) Jesus Egan MD: [address] [place] [address], Ph. Attender: Jesus Egan MD [facility] Medical 03/23/2021 12:00:00 AM EDT [place] ([facility]) Medications No Information Insurance Providers Payer name Policy type / Coverage type Policy ID Covered libertarian ID Covered libertarian's relationship to rousseau Policy Rousseau Plan Information [id number] [facility] MEDICAID [id number] SP [id number] M SELF PAY ONLY SP [facility] MEDICAID [id number] SP [id number] [facility] PHY [id number] SP [id number] [facility] BLUE [id number] SP [id number] [facility] [id number] SP [id number] Problems, Conditions, and Diagnoses Code Display Name Description Problem Type Effective Dates Data Source(s) [id number] Essential hypertension Essential hypertension Problem 04/10/2021 12:00:00 AM EDT [facility] ([facility], ) [id number] Chronic low back pain Chronic Low Back Pain Problem 03/23/2021 12:00:00 AM EDT [facility] ([facility]) [id number] Recurrent pulmonary embolism Recurrent Pulmonary Embol ism Problem 03/23/2021 12:00:00 AM EDT [place] ([facility]) [id number] Benign essential hypertension Benign Essential Hyperte nsion Problem 03/23/2021 12:00:00 AM EDT [place] ([facility]) [id number] Depressive disorder Depressive Disorder Problem 0 03/23/2021 12:00:00 AM EDT [place] ([facility]) [id number] Chronic low back pain Chronic Low Back Pain Problem 03/23/2021 12:00:00 AM EDT [facility] ([facility]) [id number] Recurrent pulmonary embolism Recurrent Pulmonary Embol ism Problem 03/23/2021 12:00:00 AM EDT [facility] ([facility]) [id number] Benign essential hypertension Benign Essential Hyperte nsion Problem 03/23/2021 12:00:00 AM EDT [facility] ([facility]) [id number] Depressive disorder Depressive Disorder Problem 0 03/23/2021 12:00:00 AM EDT [facility] ([facility]) [id number] Chronic low back pain Chronic Low Back Pain Problem 03/23/2021 12:00:00 AM EDT [facility] ([facility]) [id number] Recurrent pulmonary embolism Recurrent Pulmonary Embol ism Problem 03/23/2021 12:00:00 AM EDT [facility] ([facility]) [id number] Benign essential hypertension Benign Essential Hyperte nsion Problem 03/23/2021 12:00:00 AM EDT [facility] ([facility]) [id number] Depressive disorder Depressive Disorder Problem 0 03/23/2021 12:00:00 AM EDT [place] ([facility]) [id number] Chronic low back pain Chronic Low Back Pain Problem 03/23/2021 12:00:00 AM EDT [facility] ([facility]) [id number] Recurrent pulmonary embolism Recurrent Pulmonary Embol ism Problem 03/23/2021 12:00:00 AM EDT [place] ([facility]) [id number] Benign essential hypertension Benign Essential Hyperte nsion Problem 03/23/2021 12:00:00 AM EDT [place] ([facility]) [id number] Depressive disorder Depressive Disorder Problem 0 03/23/2021 12:00:00 AM EDT [facility] ([facility]) Surgeries/Procedures Procedure Description Date Indications Data Source(s) OFFICE OUTPATIENT NEW 45 MINUTES 04/10/2021 12:00:00 A M EDT [facility] ([facility], ) Results ID Date Data Source [id number] 04/07/2021 03:05:00 PM EDT [facility] ([facility]) Name Value Range Interpretation Code Description Data Esthela rce(s) Supporting Document(s) Prothrombin time (PT) 39.5 sec 9.0-11.5 Above high normal Pt [place] ([facility]) INR in Platelet poor plasma by Coagulation assay Above high normal Inr [facility]) ID Date Data Source [id number] 04/04/2021 12:00:00 AM EDT [facility]) Name Value Range Interpretation Code Description Data Esthela rce(s) Supporting Document(s) Prothrombin time (PT) 26.6 sec 9.0-11.5 Above high normal Pt [place] ([facility]) INR in Platelet poor plasma by Coagulation assay Above high normal Inr [facility]) ID Date Data Source [id number] 03/30/2021 08:35:00 AM EDT [facility]) Name Value Range Interpretation Code Description Data Esthela rce(s) Supporting Document(s) Thyrotropin [Units/volume] in Serum or Plasma 4.30 mIU/L 0.40-4.5 0 TSH W/reflex to FT4 [facility]) ID Date Data Source [id number] 03/30/2021 08:35:00 AM EDT [facility]) Name Value Range Interpretation Code Description Data Esthela rce(s) Supporting Document(s) Glucose [Mass/volume] in Serum or Plasma 101 mg/dL 65-99 Above high normal Glucose [place] ([facility]) Urea nitrogen [Mass/volume] in Serum or Plasma 21 mg/dL 7-25 Urea Nitrogen (BUN) [facility]) Glomerular filtration rate/1.73 sq M.pre dicted among non-blacks [Volume Rate/Area] in Serum, Plasma or Blood by Creatinine-based formula (CKD-EPI) 93 mL/min/1.73m2 > or = 60 eGFR Non-afr. [place] [facility] ([facility]) Urea nitrogen/Creatinine [Mass Ratio] in Serum or Plasma not applic able 6-22 BUN/creatinine Ratio [place] ([facility]) Glomerular filtration rate/1.73 sq M.pre dicted among blacks [Volume Rate/Area] in Serum, Plasma or Blood by Creatinine-based formula (CKD-EPI) 108 mL/min/1.73m2 > or = 60 eGFR [facility] ([facility]) Creatinine [Mass/volume] in Serum or Plasma 0.93 mg/dL 0.70-1.33 Creatinine [place] ([facility]) Potassium [Moles/volume] in Serum or Plasma 4.6 mmol/L 3.5-5.3 Potassium [place] ([facility]) Sodium [Moles/volume] in Serum or Plasma 140 mmol/L 135-146 Sodium [place] ([facility]) Chloride [Moles/volume] in Serum or Plasma 107 mmol/L 98-110 Chloride [place] ([facility]) Carbon dioxide, total [Moles/volume] in Serum or Plasma 27 mmol/L 20-32 Carbon Dioxide [facility] ([facility]) Globulin [Mass/volume] in Serum by calculation 2.2 g/dL_(calc) 1.9- 3.7 Globulin [place] ([facility]) Albumin [Mass/volume] in Serum or Plasma 4.3 g/dL 3.6-5.1 Albumin [place] ([facility]) Calcium [Mass/volume] in Serum or Plasma 9.4 mg/dL 8.6-10.3 Calcium [facility] ([facility]) Albumin/Globulin [Mass Ratio] in Serum or Plasma 2.0 (calc) 1.0-2 .5 Albumin/globulin Ratio [facility] ([facility]) Protein [Mass/volume] in Serum or Plasma 6.5 g/dL 6.1-8.1 Protein, Total [place] ([facility]) Aspartate aminotransferase [Enzymatic activity/volume] in Serum or Plasma 15 U/L 10-35 Ast [facility] ([facility]) Alkaline phosphatase [Enzymatic activity/volume] in Serum or Plasma 62 U/L 35-144 Alkaline Phosphatase [facility] ([facility]) Bilirubin.total [Mass/volume] in Serum or Plasma 0.3 mg/dL 0.2-1 .2 Bilirubin, Total [facility] ([facility]) Alanine aminotransferase [Enzymatic activity/volume] in Seru m or Plasma 15 U/L 9-46 Alt [facility] ([facility]) ID Date Data Source [id number] 03/30/2021 08:35:00 AM EDT [facility] ([facility]) Name Value Range Interpretation Code Description Data Esthela rce(s) Supporting Document(s) Triglyceride [Mass/volume] in Serum or Plasma 209 mg/dL <150 Above high normal Triglycerides [facility] ([facility]) Cholesterol [Mass/volume] in Serum or Plasma 211 mg/dL <200 Above high normal Cholesterol, Total [place] ([facility]) Cholesterol in LDL [Mass/volume] in Serum or Plasma by calculation 134 mg/dL_(calc) Above high normal LDL-cholesterol [place] ([facility]) Cholesterol in HDL [Mass/volume] in Serum or Plasma 42 mg/dL > or = 40 HDL Cholesterol [place] ([facility]) Cholesterol.total/Cholesterol in HDL [Mass Ratio] in Serum o r Plasma 5.0 (calc) <5.0 Above high normal Chol/hdlc Ratio [place] ([facility]) Cholesterol non HDL [Mass/volume] in Serum or Plasma 169 mg/dL_( calc) <130 Above high normal Non HDL Cholesterol [facility] ([facility]) ID Date Data Source [id number] 03/30/2021 08:35:00 AM EDT [place] ([facility]) Name Value Range Interpretation Code Description Data Esthela rce(s) Supporting Document(s) INR in Platelet poor plasma by Coagulation assay Above high normal Inr [facility] ([facility]) Prothrombin time (PT) 15.3 sec 9.0-11.5 Above high normal Pt [facility] ([facility]) ID Date Data Source [id number] 03/30/2021 08:35:00 [facility] Name Value Range Interpretation Code Description Data Esthela rce(s) Supporting Document(s) Thyrotropin [Units/volume] in Serum or Plasma 4.30 mIU/L 0.40-4.5 0 TSH W/reflex to FT4 [facility] ([facility]) ID Date Data Source [id number] 03/30/2021 08:35:00 AM EDT [place] ([facility]) Name Value Range Interpretation Code Description Data Esthela rce(s) Supporting Document(s) Glucose [Mass/volume] in Serum or Plasma 101 mg/dL 65-99 Above high normal Glucose [facility] ([facility]) Urea nitrogen [Mass/volume] in Serum or Plasma 21 mg/dL 7-25 Urea Nitrogen (BUN) [facility] ([facility]) Creatinine [Mass/volume] in Serum or Plasma 0.93 mg/dL 0.70-1.33 Creatinine [place] ([facility]) Glomerular filtration rate/1.73 sq M.pre dicted among non-blacks [Volume Rate/Area] in Serum, Plasma or Blood by Creatinine-based formula (CKD-EPI) 93 mL/min/1.73m2 > or = 60 eGFR Non-afr. [place] Z[facility]IA ([facility]) Glomerular filtration rate/1.73 sq M.pre dicted among blacks [Volume Rate/Area] in Serum, Plasma or Blood by Creatinine-based formula (CKD-EPI) 108 mL/min/1.73m2 > or = 60 eGFR [facility] ([facility]) Urea nitrogen/Creatinine [Mass Ratio] in Serum or Plasma not applic able 6-22 BUN/creatinine Ratio [facility] ([facility]) Sodium [Moles/volume] in Serum or Plasma 140 mmol/L 135-146 Sodium [facility] ([facility]) Chloride [Moles/volume] in Serum or Plasma 107 mmol/L 98-110 Chloride [facility] ([facility]) Potassium [Moles/volume] in Serum or Plasma 4.6 mmol/L 3.5-5.3 Potassium [place] ([facility]) Carbon dioxide, total [Moles/volume] in Serum or Plasma 27 mmol/L 20-32 Carbon Dioxide [facility] ([facility]) Calcium [Mass/volume] in Serum or Plasma 9.4 mg/dL 8.6-10.3 Calcium [facility] ([facility]) Protein [Mass/volume] in Serum or Plasma 6.5 g/dL 6.1-8.1 Protein, Total [place] ([facility]) Albumin [Mass/volume] in Serum or Plasma 4.3 g/dL 3.6-5.1 Albumin [facility] ([facility]) Globulin [Mass/volume] in Serum by calculation 2.2 g/dL_(calc) 1.9- 3.7 Globulin [facility] ([facility]) Alkaline phosphatase [Enzymatic activity/volume] in Serum or Plasma 62 U/L 35-144 Alkaline Phosphatase [place] ([facility]) Albumin/Globulin [Mass Ratio] in Serum or Plasma 2.0 (calc) 1.0-2 .5 Albumin/globulin Ratio [place] ([facility]) Alanine aminotransferase [Enzymatic activity/volume] in Seru m or Plasma 15 U/L 9-46 Alt [place] ([facility]) Aspartate aminotransferase [Enzymatic activity/volume] in Serum or Plasma 15 U/L 10-35 Ast [place] ([facility]) Bilirubin.total [Mass/volume] in Serum or Plasma 0.3 mg/dL 0.2-1 .2 Bilirubin, Total [place] ([facility]) ID Date Data Source [id number] 03/30/2021 08:35:00 AM EDT [place] ([facility]) Name Value Range Interpretation Code Description Data Esthela rce(s) Supporting Document(s) Triglyceride [Mass/volume] in Serum or Plasma 209 mg/dL <150 Above high normal Triglycerides [place] ([facility]) Cholesterol in HDL [Mass/volume] in Serum or Plasma 42 mg/dL > or = 40 HDL Cholesterol [place] ([facility]) Cholesterol [Mass/volume] in Serum or Plasma 211 mg/dL <200 Above high normal [facility]olesterol, [facility] Cholesterol in LDL [Mass/volume] in Serum or Plasma by calculation 134 mg/dL_(calc) Above high normal LDL-cholesterol [place] ([facility]) Cholesterol.total/Cholesterol in HDL [Mass Ratio] in Serum o r Plasma 5.0 (calc) <5.0 Above high normal Chol/hdlc Ratio [facility] ([facility]) Cholesterol non HDL [Mass/volume] in Serum or Plasma 169 mg/dL_( calc) <130 Above high normal Non HDL Cholesterol [facility] ([facility]) ID Date Data Source [id number] 03/30/2021 08:35:00 AM EDT [place] ([facility]) Name Value Range Interpretation Code Description Data Esthela rce(s) Supporting Document(s) INR in Platelet poor plasma by Coagulation assay Above high normal Inr [place] ([facility]) Prothrombin time (PT) 15.3 sec 9.0-11.5 Above high normal Pt [place] ([facility]) Procedure Social History Code Duration Value Status Description Data Source(s ) Smoking 04/20/2021 12:00:00 AM EDT Never Smoker completed Never S moker [facility] Vital Signs ID Date Data Source [id number] Name Value Range Interpretation Code Description Data Source(s) Body weight 187.0 [lb_av] 187.0 [lb_av] eCW1 ([facility] Body weight 84.82 kg 84.82 kg [facility] ([facility]) Body height 67 [in_i] 67 [in_i] W1 ([facility]) Body mass index (BMI) [Ratio] 29.29 kg/m2 29.29 kg/m2 eCW1 [facility]) Heart rate 61 /min 61 /min eCW1 ([facility]) Respiratory rate 18 /min 18 /min eCW1 ([facility]) Body temperature 97.7 [degF] 97.7 [degF] eCW1 ( [facility] Systolic blood pressure 135 mm[Hg] 135 mm[Hg] e CW1 ([facility]) Diastolic blood pressure 82 mm[Hg] 82 mm[Hg] eCW1 [facility]) Body temperature 98.0 [degF] 98.0 [degF] MED[facility] ([facility]) Body height 67 [in_i] 67 [in_i] [facility] ([facility]) Body height 67 [in_i] 67 [in_i] [facility] ([facility]) Body height 67 [in_i] 67 [in_i] [facility] ([facility]) Diastolic blood pressure 84 mm[Hg] 84 mm[Hg] [facility] ([facility]) Body height 67 [in_i] 67 [in_i] [facility] ([facility]) Body mass index (BMI) [Ratio] 28.5 kg/m2 28.5 k g/m2 [facility] ([facility]) Systolic blood pressure 130 mm[Hg] 130 mm[Hg] A [facility] ([facility]) Body weight 2912 [oz_av] 2912 [oz_av] [facility] ([facility]) Diastolic blood pressure 84 mm[Hg] 84 mm[Hg] [facility] ([facility]) Body height 67 [in_i] 67 [in_i] [facility] ([facility]) Body mass index (BMI) [Ratio] 28.5 kg/m2 28.5 k g/m2 [facility] ([facility]) Systolic blood pressure 130 mm[Hg] 130 mm[Hg] A [facility] ([facility]) Body weight 2912 [oz_av] 2912 [oz_av] [facility] ([facility]) Diastolic blood pressure 84 mm[Hg] 84 mm[Hg] [facility] ([facility]) Body height 67 [in_i] 67 [in_i] [facility] ([facility]) Body mass index (BMI) [Ratio] 28.5 kg/m2 28.5 k g/m2 [facility] ([facility]) Systolic blood pressure 130 mm[Hg] 130 mm[Hg] A [facility] ([facility]) Body weight 2912 [oz_av] 2912 [oz_av] [facility] ([facility]) Diastolic blood pressure 84 mm[Hg] 84 mm[Hg] [facility] ([facility]) Body height 67 [in_i] 67 [in_i] ZENIA ([facility]) Body mass index (BMI) [Ratio] 28.5 kg/m2 28.5 k g/m2 ZENIA ([facility]) Systolic blood pressure 130 mm[Hg] 130 mm[Hg] A JOSE ([facility]) Body weight 2912 [oz_av] 2912 [oz_av] ZENIA ([facility])
--- OUTSIDE RECORDS SUMMARY | 2021-04-28 18:53 | CCD ---
Author Author [facility] Organization [facility] Address Unknown Phone Unavailable Care Team Providers Care Door Glass Installer Name Role Phone Elena Egan MD [...] Unavailable Unavailable EganElena MD Unavailable Unavailable Egan, Elean Lee MD Unavailable Unavailable EganElena MD Unavailable Unavailable EganElena MD Unavailable Unavailable Egan, Elena Lee MD Unavailable Unavailable EganElena MD Unavailable Unavailable Elena Egan MD Unavailable Unavailable EganElena MD Unavailable Unavailable EganElena MD Unavailable Unavailable EganElena MD Unavailable Unavailable Gean, Elena Lee MD Unavailable Unavailable EganElena MD [...] is protected by Article 27-F of the [facility] Public Health law. If you continue you may have access to information: Regarding HIV / AIDS; Provided by facilities licensed or operated by the [facility] Office of Mental Health; or Provided by the [facility] Office for People With Developmental Disabilities. If such information is present, then the following [facility] mandated warning applies: This information has [...] law may result in a fine or intermediate sentence or both. A general authorization for the release of medical or other information is NOT sufficient authorization for further disc losure. Allergies and Adverse Reactions Type Description Substance Reaction Status Data Source(s ) Drug Allergy Drug Allergy NKDA MEDENT ([facility], ) Encounters Encounter Providers Location Date Indications Data Source(s ) Outpatient [address] [facility] [id number] 04/20/2021 12:00:00 AM EDT eCW1 ([facility]) Outpatient Attender: SILVANA Mercado/Katherine/Paul/ Reinsherley 04/10/2021 11:00:00 AM EDT MEDENT ([facility]) Jesus Egan MD: [address] [place] [phone], Ph. Attender: Jesus Egan MD [facility] Medical 04/08/2021 12:00:00 AM EDT ZENIA ([facility]) Jesus Egan MD: [address] [place] [address], Ph. Attender: Jesus Egan MD [facility] Medical 04/03/2021 12:00:00 AM EDT ZENIA ([facility]) Jesus Egan MD: [address] [place] [address], Ph. Attender: Jesus gEan MD [facility] Medical 04/03/2021 12:00:00 AM EDT ZENIA ([facility]) Jesus Egan MD: [address] [place] [address], Ph. Attender: Jesus Egan MD [facility] Medical 03/30/2021 12:00:00 AM EDT ZENIA ([facility]) Jesus Egan MD: [address] [place] [address], Ph. Attender: Jesus Egan MD [facility] Medical 03/30/2021 12:00:00 AM EDT ZENIA ([facility]) Jesus Egan MD: [address] [place] [address], Ph. Attender: Jesus Egan MD [facility] Medical 03/30/2021 12:00:00 AM EDT ZENIA ([facility]) Jesus Egan MD: [address] [place] [address], Ph. Attender: Jesus Egan MD [facility] Medical 03/23/2021 12:00:00 AM EDT ZENIA ([facility]) Jesus Egan MD: [address] [place] [address], Ph. Attender: Jesus Egan MD [facility] Medical 03/23/2021 12:00:00 AM EDT ZENIA ([facility]) Jesus Egan MD: [address] [place] [address], Ph. Attender: Jesus Egan MD [facility] Medical 03/23/2021 12:00:00 AM EDT LYNDEN ([facility]) Jesus Egan MD: [address] [place] [address], Ph. Attender: Jesus Egan MD [facility] Medical 03/23/2021 12:00:00 AM EDT LYNDEN ([facility]) Medications No Information Insurance Providers Payer name Policy type / Coverage type Policy ID Covered alliance party ID Covered alliance party's relationship to rousseau Policy Rousseau Plan Information [id number] [facility] MEDICAID [id number] SP [id number] M SELF PAY ONLY SP [facility] MEDICAID [id number] SP [id number] M [facility] PHY [id number] SP [id number] [facility] [place] [id number] SP [id number] [facility] [id number] SP [id number] Problems, Conditions, and Diagnoses Code Display Name Description Problem Type Effective Dates Data Source(s) 81779426 Essential hypertension Essential hypertension Problem 04/10/2021 12:00:00 AM EDT CANDICE ([facility], ) [id number] Chronic low back pain Chronic Low Back Pain Problem 03/23/2021 12:00:00 AM EDT ZENIA ([facility]) [id number] Recurrent pulmonary embolism Recurrent Pulmonary Embol ism Problem 03/23/2021 12:00:00 AM EDT LYNDEN ([facility]) [id number] Benign essential hypertension Benign Essential Hyperte nsion Problem 03/23/2021 12:00:00 AM EDT LYNDEN ([facility] er) [id number] Depressive disorder Depressive Disorder Problem 0 03/23/2021 12:00:00 AM EDT LYNDEN ([facility] er) [id number] Chronic low back pain Chronic Low Back Pain Problem 03/23/2021 12:00:00 AM EDT ZENIA ([facility]) [id number] Recurrent pulmonary embolism Recurrent Pulmonary Embol ism Problem 03/23/2021 12:00:00 AM EDT ZENIA ([facility]) [id number] Benign essential hypertension Benign Essential Hyperte nsion Problem 03/23/2021 12:00:00 AM EDT ZENIA ([facility]) [id number] Depressive disorder Depressive Disorder Problem 0 03/23/2021 12:00:00 AM EDT ZENIA ([facility]) [id number] Chronic low back pain Chronic Low Back Pain Problem 03/23/2021 12:00:00 AM EDT ZENIA ([facility]) [id number] Recurrent pulmonary embolism Recurrent Pulmonary Embol ism Problem 03/23/2021 12:00:00 AM EDT ZENIA ([facility]) 2703771 Benign essential hypertension Benign Essential Hyperte nsion Problem 03/23/2021 12:00:00 AM EDT ZENIA ([facility]) [id number] Depressive disorder Depressive Disorder Problem 0 03/23/2021 12:00:00 AM EDT ZENIA ([facility]) [id number] Chronic low back pain Chronic Low Back Pain Problem 03/23/2021 12:00:00 AM EDT ZENIA ([facility]) [id number] Recurrent pulmonary embolism Recurrent Pulmonary Embol ism Problem 03/23/2021 12:00:00 AM EDT ZENIA ([facility]) 1410824 Benign essential hypertension Benign Essential Hyperte nsion Problem 03/23/2021 12:00:00 AM EDT ZENIA ([facility]) [id number] Depressive disorder Depressive Disorder Problem 0 03/23/2021 12:00:00 AM EDT ZENIA ([facility]) Surgeries/Procedures Procedure Description Date Indications Data Source(s) OFFICE OUTPATIENT NEW 45 MINUTES 04/10/2021 12:00:00 A M EDT CANDICE ([facility], ) Results ID Date Data Source [id number] 04/07/2021 03:05:00 PM EDT ZENIA ([facility]) Name Value Range Interpretation Code Description Data Esthela rce(s) Supporting Document(s) Prothrombin time (PT) 39.5 sec 9.0-11.5 Above high normal Pt LYNDEN ([facility]) INR in Platelet poor plasma by Coagulation assay Above high normal Inr [facility]) ID Date Data Source [id number] 04/04/2021 12:00:00 AM EDT [facility]) Name Value Range Interpretation Code Description Data Esthela rce(s) Supporting Document(s) Prothrombin time (PT) 26.6 sec 9.0-11.5 Above high normal Pt LYNDEN ([facility]) INR in Platelet poor plasma by Coagulation assay Above high normal Inr [facility]) ID Date Data Source [id number] 03/30/2021 08:35:00 AM EDT [facility]) Name Value Range Interpretation Code Description Data Esthela rce(s) Supporting Document(s) Thyrotropin [Units/volume] in Serum or Plasma 4.30 mIU/L 0.40-4.5 0 TSH W/reflex to FT4 [facility]) ID Date Data Source [id number] 03/30/2021 08:35:00 AM EDT [facility]) Name Value Range Interpretation Code Description Data Esthela rce(s) Supporting Document(s) Glucose [Mass/volume] in Serum or Plasma 101 mg/dL 65-99 Above high normal Glucose LYNDEN ([facility]) Urea nitrogen [Mass/volume] in Serum or Plasma 21 mg/dL 7-25 Urea Nitrogen (BUN) [facility]) Glomerular filtration rate/1.73 sq M.pre dicted among non-blacks [Volume Rate/Area] in Serum, Plasma or Blood by Creatinine-based formula (CKD-EPI) 93 mL/min/1.73m2 > or = 60 eGFR Non-afr. Scottish ZENIA ([facility]) Urea nitrogen/Creatinine [Mass Ratio] in Serum or Plasma not applic able 6-22 BUN/creatinine Ratio ZENIA ([facility]) Glomerular filtration rate/1.73 sq M.pre dicted among blacks [Volume Rate/Area] in Serum, Plasma or Blood by Creatinine-based formula (CKD-EPI) 108 mL/min/1.73m2 > or = 60 eGFR ZENIA ([facility]) Creatinine [Mass/volume] in Serum or Plasma 0.93 mg/dL 0.70-1.33 Creatinine ZENIA ([facility]) Potassium [Moles/volume] in Serum or Plasma 4.6 mmol/L 3.5-5.3 Potassium ZENIA ([facility]) Sodium [Moles/volume] in Serum or Plasma 140 mmol/L 135-146 Sodium ZENIA ([facility]) Chloride [Moles/volume] in Serum or Plasma 107 mmol/L 98-110 Chloride ZENIA ([facility]) Carbon dioxide, total [Moles/volume] in Serum or Plasma 27 mmol/L 20-32 Carbon Dioxide ZENIA ([facility]) Globulin [Mass/volume] in Serum by calculation 2.2 g/dL_(calc) 1.9- 3.7 Globulin ZENIA ([facility]) Albumin [Mass/volume] in Serum or Plasma 4.3 g/dL 3.6-5.1 Albumin ZENIA ([facility]) Calcium [Mass/volume] in Serum or Plasma 9.4 mg/dL 8.6-10.3 Calcium ZENIA ([facility]) Albumin/Globulin [Mass Ratio] in Serum or Plasma 2.0 (calc) 1.0-2 .5 Albumin/globulin Ratio ZENIA ([facility]) Protein [Mass/volume] in Serum or Plasma 6.5 g/dL 6.1-8.1 Protein, Total ZENIA ([facility]) Aspartate aminotransferase [Enzymatic activity/volume] in Serum or Plasma 15 U/L 10-35 Ast ZENIA ([facility]) Alkaline phosphatase [Enzymatic activity/volume] in Serum or Plasma 62 U/L 35-144 Alkaline Phosphatase ZENIA ([facility]) Bilirubin.total [Mass/volume] in Serum or Plasma 0.3 mg/dL 0.2-1 .2 Bilirubin, Total ZENIA ([facility]) Alanine aminotransferase [Enzymatic activity/volume] in Seru m or Plasma 15 U/L 9-46 Alt ZENIA ([facility]) ID Date Data Source [id number] 03/30/2021 08:35:00 AM EDT ZENIA ([facility]) Name Value Range Interpretation Code Description Data Esthela rce(s) Supporting Document(s) Triglyceride [Mass/volume] in Serum or Plasma 209 mg/dL <150 Above high normal Triglycerides ZENIA ([facility]) Cholesterol [Mass/volume] in Serum or Plasma 211 mg/dL <200 Above high normal Cholesterol, Total ZENIA ([facility]) Cholesterol in LDL [Mass/volume] in Serum or Plasma by calculation 134 mg/dL_(calc) Above high normal LDL-cholesterol ZENIA ([facility]) Cholesterol in HDL [Mass/volume] in Serum or Plasma 42 mg/dL > or = 40 HDL Cholesterol ZENIA ([facility]) Cholesterol.total/Cholesterol in HDL [Mass Ratio] in Serum o r Plasma 5.0 (calc) <5.0 Above high normal Chol/hdlc Ratio ZENIA ([facility]) Cholesterol non HDL [Mass/volume] in Serum or Plasma 169 mg/dL_( calc) <130 Above high normal Non HDL Cholesterol ZENIA ([facility]) ID Date Data Source [id number] 03/30/2021 08:35:00 AM EDT ZENIA ([facility]) Name Value Range Interpretation Code Description Data Esthela rce(s) Supporting Document(s) INR in Platelet poor plasma by Coagulation assay Above high normal Inr ZENIA ([facility]) Prothrombin time (PT) 15.3 sec 9.0-11.5 Above high normal Pt ZENIA ([facility]) ID Date Data Source [id number] 03/30/2021 08:35:00 [facility] Name Value Range Interpretation Code Description Data Esthela rce(s) Supporting Document(s) Thyrotropin [Units/volume] in Serum or Plasma 4.30 mIU/L 0.40-4.5 0 TSH W/reflex to FT4 ZENIA ([facility]) ID Date Data Source [id number] 03/30/2021 08:35:00 AM EDT LYNDEN ([facility]) Name Value Range Interpretation Code Description Data Esthela rce(s) Supporting Document(s) Glucose [Mass/volume] in Serum or Plasma 101 mg/dL 65-99 Above high normal Glucose ZENIA ([facility]) Urea nitrogen [Mass/volume] in Serum or Plasma 21 mg/dL 7-25 Urea Nitrogen (BUN) ZENIA ([facility]) Creatinine [Mass/volume] in Serum or Plasma 0.93 mg/dL 0.70-1.33 Creatinine LYNDEN ([facility]) Glomerular filtration rate/1.73 sq M.pre dicted among non-blacks [Volume Rate/Area] in Serum, Plasma or Blood by Creatinine-based formula (CKD-EPI) 93 mL/min/1.73m2 > or = 60 eGFR Non-afr. Scottish ZENIA ([facility]) Glomerular filtration rate/1.73 sq M.pre dicted among blacks [Volume Rate/Area] in Serum, Plasma or Blood by Creatinine-based formula (CKD-EPI) 108 mL/min/1.73m2 > or = 60 eGFR ZENIA (No [facility]) Urea nitrogen/Creatinine [Mass Ratio] in Serum or Plasma not applic able 6-22 BUN/creatinine Ratio ZENIA ([facility]) Sodium [Moles/volume] in Serum or Plasma 140 mmol/L 135-146 Sodium ZENIA ([facility]) Chloride [Moles/volume] in Serum or Plasma 107 mmol/L 98-110 Chloride ZENIA ([facility]) Potassium [Moles/volume] in Serum or Plasma 4.6 mmol/L 3.5-5.3 Potassium LYNDEN ([facility]) Carbon dioxide, total [Moles/volume] in Serum or Plasma 27 mmol/L 20-32 Carbon Dioxide ZENIA ([facility]) Calcium [Mass/volume] in Serum or Plasma 9.4 mg/dL 8.6-10.3 Calcium ZENIA ([facility]) Protein [Mass/volume] in Serum or Plasma 6.5 g/dL 6.1-8.1 Protein, Total LYNDEN ([facility]) Albumin [Mass/volume] in Serum or Plasma 4.3 g/dL 3.6-5.1 Albumin ZENIA ([facility]) Globulin [Mass/volume] in Serum by calculation 2.2 g/dL_(calc) 1.9- 3.7 Globulin ZENIA ([facility]) Alkaline phosphatase [Enzymatic activity/volume] in Serum or Plasma 62 U/L 35-144 Alkaline Phosphatase LYNDEN ([facility]) Albumin/Globulin [Mass Ratio] in Serum or Plasma 2.0 (calc) 1.0-2 .5 Albumin/globulin Ratio LYNDEN ([facility]) Alanine aminotransferase [Enzymatic activity/volume] in Seru m or Plasma 15 U/L 9-46 Alt LYNDEN ([facility]) Aspartate aminotransferase [Enzymatic activity/volume] in Serum or Plasma 15 U/L 10-35 Ast LYNDEN ([facility]) Bilirubin.total [Mass/volume] in Serum or Plasma 0.3 mg/dL 0.2-1 .2 Bilirubin, Total LYNDEN ([facility]) ID Date Data Source [id number] 03/30/2021 08:35:00 AM EDT LYNDEN ([facility]) Name Value Range Interpretation Code Description Data Esthela rce(s) Supporting Document(s) Triglyceride [Mass/volume] in Serum or Plasma 209 mg/dL <150 Above high normal Triglycerides ZENIA ([facility]) Cholesterol in HDL [Mass/volume] in Serum or Plasma 42 mg/dL > or = 40 HDL Cholesterol ZENIA ([facility]) Cholesterol [Mass/volume] in Serum or Plasma 211 mg/dL <200 Above high normal [facility]olesterol, [facility] Cholesterol in LDL [Mass/volume] in Serum or Plasma by calculation 134 mg/dL_(calc) Above high normal LDL-cholesterol ZENIA ([facility]) Cholesterol.total/Cholesterol in HDL [Mass Ratio] in Serum o r Plasma 5.0 (calc) <5.0 Above high normal Chol/hdlc Ratio ZENIA ([facility]) Cholesterol non HDL [Mass/volume] in Serum or Plasma 169 mg/dL_( calc) <130 Above high normal Non HDL Cholesterol ZENIA ([facility]) ID Date Data Source [id number] 03/30/2021 08:35:00 AM EDT ZENIA ([facility]) Name Value Range Interpretation Code Description Data Esthela rce(s) Supporting Document(s) INR in Platelet poor plasma by Coagulation assay Above high normal Inr LYNDEN ([facility]) Prothrombin time (PT) 15.3 sec 9.0-11.5 Above high normal Pt LYNDEN ([facility]) Procedure Social History Code Duration Value Status Description Data Source(s ) Smoking 04/20/2021 12:00:00 AM EDT Never Smoker completed Never S moker eCW1 ([facility]) Vital Signs ID Date Data Source [id number] Name Value Range Interpretation Code Description Data Source(s) Body weight 187.0 [lb_av] 187.0 [lb_av] eCW1 ([facility]) Body weight 84.82 kg 84.82 kg [facility] ([facility]) Body height 67 [in_i] 67 [in_i] W1 ([facility]) Body mass index (BMI) [Ratio] 29.29 kg/m2 29.29 kg/m2 eCW1 ([facility]) Heart rate 61 /min 61 /min eCW1 ([facility]) Respiratory rate 18 /min 18 /min eCW1 ([facility]) Body temperature 97.7 [degF] 97.7 [degF] eCW1 ( [facility]) Systolic blood pressure 135 mm[Hg] 135 mm[Hg] e CW1 ([facility]) Diastolic blood pressure 82 mm[Hg] 82 mm[Hg] eCW1 ([facility]) Body temperature 98.0 [degF] 98.0 [degF] MEDENT ([facility]) Body height 67 [in_i] 67 [in_i] ZENIA ([facility]) Body height 67 [in_i] 67 [in_i] ZENIA ([facility]) Body height 67 [in_i] 67 [in_i] ZENIA ([facility]) Diastolic blood pressure 84 mm[Hg] 84 mm[Hg] ZENIA ([facility]) Body height 67 [in_i] 67 [in_i] ZENIA ([facility]) Body mass index (BMI) [Ratio] 28.5 kg/m2 28.5 k g/m2 ZENIA ([facility]) Systolic blood pressure 130 mm[Hg] 130 mm[Hg] A [facility] ([facility]) Body weight 2912 [oz_av] 2912 [oz_av] ZENIA ([facility]) Diastolic blood pressure 84 mm[Hg] 84 mm[Hg] ZENIA ([facility]) Body height 67 [in_i] 67 [in_i] ZENIA ([facility]) Body mass index (BMI) [Ratio] 28.5 kg/m2 28.5 k g/m2 ZENIA ([facility]) Systolic blood pressure 130 mm[Hg] 130 mm[Hg] A THENA ([facility]) Body weight 2912 [oz_av] 2912 [oz_av] ZENIA ([facility]) Diastolic blood pressure 84 mm[Hg] 84 mm[Hg] ZENIA ([facility]) Body height 67 [in_i] 67 [in_i] ZENIA ([facility]) Body mass index (BMI) [Ratio] 28.5 kg/m2 28.5 k g/m2 ZENIA ([facility]) Systolic blood pressure 130 mm[Hg] 130 mm[Hg] A THENA ([facility]) Body weight 2912 [oz_av] 2912 [oz_av] ZENIA ([facility]) Diastolic blood pressure 84 mm[Hg] 84 mm[Hg] ZENIA ([facility]) Body height 67 [in_i] 67 [in_i] ZENIA ([facility]) Body mass index (BMI) [Ratio] 28.5 kg/m2 28.5 k g/m2 ZENIA ([facility]) Systolic blood pressure 130 mm[Hg] 130 mm[Hg] A JOSE ([facility]) Body weight 2912 [oz_av] 2912 [oz_av] ZENIA ([facility])
== END 2021-04-28 18:40 | disposition left against medical advice (07) ==
LOC: M ED 14:14
DX: Z53.29 Procedure and treatment not carried out because of patient's decision for other reasons (principal)

== ENCOUNTER → 2021-06-10 | Outpatient (CLI) | payer OTHER | LOC: M LABSMTC 11:02 | PROVIDERS: ATTEND Anesthesiology | DX: Z01.818 Encounter for other preprocedural examination (principal); Z11.52 Encounter for screening for COVID-19 ==

== ENCOUNTER → 2021-06-15 | Outpatient (CLI) | payer MEDICAID ==
[~2021-06-15] MED LIST changes: +ISOVUE-M 300 61% 15ML VIAL As Ordered ONE; +LIDOCAINE 1% SDV 30ML VIAL As Ordered ONE; +diazePAM 5MG TABLET As Ordered ONE; +methylPREDNISolone SUSP 40MG/ML 1ML VIAL (DEPO MEDROL) As Ordered ONE; +oxyCODONE 5MG TAB As Ordered ONE
--- NOTE | 2021-06-15 15:21 | REP ---
INDICATION: LUMBAR EPIDURAL STEROID INJECTION. COMPARISON: None. TECHNIQUE: Intraoperative fluoroscopic imaging using portable C-arm technique. FINDINGS: Image demonstrates catheter and contrast overlying the midline lower lumbar spine. Total fluoroscopic time 14.7 seconds. IMPRESSION: Findings consistent with lumbar epidural steroid injection. <Electronically signed by César Schneider > 06/15/21 [id number]
== END ==
LOC: M PAIN 11:20
PROVIDERS: ATTEND Anesthesiology
DX: M51.16 Intervertebral disc disorders with radiculopathy, lumbar region (principal); Z79.01 Long term (current) use of anticoagulants; Z79.899 Other long term (current) drug therapy; Z88.5 Allergy status to narcotic agent
CPT/HCPCS: 62323; J1030; Q9967

== ENCOUNTER 2021-07-14 08:40 | Emergency (ER) | payer OTHER ==
[~2021-07-14] VITALS: Ht 170.2 cm; Wt 82.1 kg
[~2021-07-14 08:40] MED LIST changes: -ISOVUE-M 300 61% 15ML VIAL As Ordered ONE; -LIDOCAINE 1% SDV 30ML VIAL As Ordered ONE; +LOSA25TA13; -LOSA25TA14; -diazePAM 5MG TABLET As Ordered ONE; -methylPREDNISolone SUSP 40MG/ML 1ML VIAL (DEPO MEDROL) As Ordered ONE; -oxyCODONE 5MG TAB As Ordered ONE
[2021-07-14] MEDS ORDERED: ELIQ5TAB (08:52)
[2021-07-14] MEDS ORDERED: LEXA1TAB (08:52)
[2021-07-14] MEDS ORDERED: ONDANSETRON 4 MG ORAL DISINTEGRATING TAB PO ONE (10:55)
[2021-07-14] MEDS ORDERED: NORCO, ANEXSIA 5/325MG TABLET (HYDROcodone/ACETAMINOPHEN) PO ONE (10:55)
[2021-07-14] MEDS ORDERED: TRAM50TA2 PO (12:13)
[2021-07-14 12:23] VITALS: BP 129/86
== END 2021-07-14 12:24 | disposition home or self-care (01) ==
LOC: M ED 08:40
DX: G89.29 Other chronic pain (principal); S32.009A Unspecified fracture of unspecified lumbar vertebra, initial encounter for closed fracture; X58.XXXA Exposure to other specified factors, initial encounter; Y92.89 Other specified places as the place of occurrence of the external cause; I10 Essential (primary) hypertension; Z79.899 Other long term (current) drug therapy; Z79.01 Long term (current) use of anticoagulants
CPT/HCPCS: 99283; Q0162

== ENCOUNTER → 2021-07-29 | Outpatient (CLI) | payer MEDICAID ==
[~2021-07-29] MED LIST changes: +ELIQ5TAB; +LEXA1TAB; +TRAM50TA2 PO
== END ==
LOC: M LABSMTC 09:01
PROVIDERS: ATTEND Anesthesiology
DX: Z01.812 Encounter for preprocedural laboratory examination (principal); Z11.52 Encounter for screening for COVID-19

== ENCOUNTER → 2021-08-03 | Outpatient (CLI) | payer MEDICAID ==
[~2021-08-03] MED LIST changes: +BUPIVACAINE HCL 0.25% 30ML VIAL As Ordered ONE; +ISOVUE-M 300 61% 15ML VIAL As Ordered ONE; +LIDOCAINE 1% SDV 30ML VIAL As Ordered ONE; +dexameTHASONE 10MG/1ML VIAL PRES.FREE (J1100 PER 1MG) As Ordered ONE; +diazePAM 5MG TABLET As Ordered ONE; +oxyCODONE 5MG TAB As Ordered ONE
== END ==
LOC: M PAIN 13:45
PROVIDERS: ATTEND Anesthesiology
DX: M51.16 Intervertebral disc disorders with radiculopathy, lumbar region (principal); M51.17 Intervertebral disc disorders with radiculopathy, lumbosacral region; Z88.5 Allergy status to narcotic agent; Z79.01 Long term (current) use of anticoagulants; Z79.899 Other long term (current) drug therapy
CPT/HCPCS: 64483; 64484; J1100; Q9967

== ENCOUNTER → 2021-08-26 | Outpatient (CLI) | payer MEDICAID ==
[~2021-08-26] MED LIST changes: -BUPIVACAINE HCL 0.25% 30ML VIAL As Ordered ONE; -ISOVUE-M 300 61% 15ML VIAL As Ordered ONE; -LIDOCAINE 1% SDV 30ML VIAL As Ordered ONE; -dexameTHASONE 10MG/1ML VIAL PRES.FREE (J1100 PER 1MG) As Ordered ONE; -diazePAM 5MG TABLET As Ordered ONE; -oxyCODONE 5MG TAB As Ordered ONE
== END ==
LOC: M PAIN 13:45
PROVIDERS: ATTEND Nurse Practitioner Family
DX: M51.16 Intervertebral disc disorders with radiculopathy, lumbar region (principal); Z79.01 Long term (current) use of anticoagulants; Z79.899 Other long term (current) drug therapy; Z86.711 Personal history of pulmonary embolism; Z88.5 Allergy status to narcotic agent

== ENCOUNTER 2021-09-01 08:19 | Emergency (ER) | payer MEDICAID, OTHER ==
[~2021-09-01] VITALS: Ht 170.2 cm; Wt 81.8 kg
[2021-09-01] MEDS ORDERED: methocarbamoL 750 MG TAB PO ONE (11:20)
[2021-09-01] MEDS ORDERED: LIDOCAINE 5% (LIDODERM) PATCH TD ONE (11:20)
[2021-09-01] MEDS ORDERED: PERCOCET 5MG/325MG TAB PO ONE (11:20)
[2021-09-01] MEDS ORDERED: PERC5TAB12 PO (11:27)
[2021-09-01] MEDS ORDERED: METH-1164 PO (11:59)
[2021-09-01 12:09] VITALS: BP 126/80
[2021-09-01] MEDS ORDERED: **NOTE PATIENT COMMENT** MISC XX ONE (21:00)
== END 2021-09-01 12:09 | disposition home or self-care (01) ==
LOC: M ED 08:19
DX: M51.26 Other intervertebral disc displacement, lumbar region (principal); M54.16 Radiculopathy, lumbar region; I10 Essential (primary) hypertension; E78.5 Hyperlipidemia, unspecified; R56.9 Unspecified convulsions; Z86.711 Personal history of pulmonary embolism; Z86.718 Personal history of other venous thrombosis and embolism; Z87.828 Personal history of other (healed) physical injury and trauma; M43.22 Fusion of spine, cervical region; Z79.899 Other long term (current) drug therapy; Z79.01 Long term (current) use of anticoagulants; F17.210 Nicotine dependence, cigarettes, uncomplicated

== ENCOUNTER → 2021-10-26 | Outpatient (CLI) | payer MEDICAID ==
[~2021-10-26] MED LIST changes: +METH-1164 PO
== END ==
LOC: M PAIN 14:30
PROVIDERS: ATTEND Nurse Practitioner Family
DX: M51.16 Intervertebral disc disorders with radiculopathy, lumbar region (principal); Z79.1 Long term (current) use of non-steroidal anti-inflammatories (NSAID); Z79.01 Long term (current) use of anticoagulants; Z79.899 Other long term (current) drug therapy; Z88.5 Allergy status to narcotic agent

== ENCOUNTER 2021-11-18 10:30 | Emergency (ER) | payer OTHER ==
[~2021-11-18] VITALS: Ht 170.2 cm; Wt 81.8 kg
[2021-11-18] MEDS ORDERED: TIZA10TA (10:43)
[2021-11-18] MEDS ORDERED: KETOROLAC 60MG 2ML VIAL IM ONE (12:15)
[2021-11-18] MEDS ORDERED: diazePAM 10 MG TAB PO ONE (12:15)
[2021-11-18] MEDS ORDERED: CYCL-707 PO (12:18)
[2021-11-18] MEDS ORDERED: HYDR-3713 PO (12:18)
[2021-11-18] MEDS ORDERED: ONDANSETRON 4MG ORAL DISINTEGRATING TAB PO ONE (12:35)
[2021-11-18 12:57] VITALS: BP 127/76
== END 2021-11-18 12:59 | disposition home or self-care (01) ==
LOC: M ED 10:30
DX: G89.29 Other chronic pain (principal); M54.50 Low back pain, unspecified; I10 Essential (primary) hypertension; I25.10 Atherosclerotic heart disease of native coronary artery without angina pectoris; Z86.711 Personal history of pulmonary embolism; M43.20 Fusion of spine, site unspecified; Z79.899 Other long term (current) drug therapy; Z79.01 Long term (current) use of anticoagulants; F17.210 Nicotine dependence, cigarettes, uncomplicated
CPT/HCPCS: 96372; 99283; J1885

== ENCOUNTER → 2022-02-11 | Outpatient (CLI) | payer MEDICAID ==
[~2022-02-11] MED LIST changes: +CYCL-707 PO; +HYDR-3713 PO; +TIZA10TA
== END ==
LOC: M PAIN 14:45
PROVIDERS: ATTEND Nurse Practitioner Family
DX: M51.16 Intervertebral disc disorders with radiculopathy, lumbar region (principal); Z79.01 Long term (current) use of anticoagulants; Z79.899 Other long term (current) drug therapy; Z88.5 Allergy status to narcotic agent

== ENCOUNTER → 2022-02-26 | Outpatient (CLI) | payer MEDICAID | LOC: M PAIN 15:00 | PROVIDERS: ATTEND Nurse Practitioner Family | DX: M51.16 Intervertebral disc disorders with radiculopathy, lumbar region (principal); G89.29 Other chronic pain; Z79.01 Long term (current) use of anticoagulants; Z79.899 Other long term (current) drug therapy ==

== ENCOUNTER → 2022-03-17 | Outpatient (CLI) | payer OTHER | LOC: M SOG 08:10 | PROVIDERS: ATTEND Orthopaedic Surgery | DX: M54.50 Low back pain, unspecified (principal); Z53.8 Procedure and treatment not carried out for other reasons ==

== ENCOUNTER → 2022-04-05 | Outpatient (CLI) | payer OTHER | LOC: M PAIN 14:00 | PROVIDERS: ATTEND Nurse Practitioner Family | DX: M51.16 Intervertebral disc disorders with radiculopathy, lumbar region (principal); Z79.01 Long term (current) use of anticoagulants; Z79.899 Other long term (current) drug therapy ==

== ENCOUNTER → 2022-06-07 | Outpatient (REF) | payer OTHER ==
[2022-06-07 17:31] LABS: THYROID STIMULATING HORMONE 3.413 uIU/ML (0.55-4.78)
[2022-06-07 17:32] LABS: ALBUMIN 3.9 G/DL (3.2-5.2); ALKALINE PHOSPHATASE 70 U/L (46-116); ALT/SGPT 14 U/L (7.0-40); AST/SGOT 15 U/L (<34); BILIRUBIN,TOTAL 0.3 MG/DL (0.3-1.2); BLOOD UREA NITROGEN 17 MG/DL (9-23); CALCIUM LEVEL 9.1 MG/DL (8.5-10.1); CARBON DIOXIDE LEVEL 28 MMOL/L (20-31); CHLORIDE LEVEL 106 MMOL/L (98-107); CHOLESTEROL LEVEL 192 MG/DL (<200); CHOLESTEROL RISK RATIO 3.45 (<5); CREATININE FOR GFR 0.86 MG/DL (0.70-1.30); GLOMERULAR FILTRATION RATE > 60.0 (>56); GLUCOSE, FASTING 85 MG/DL (60-100); HDL CHOLESTEROL 55.6 MG/DL (>40); LDL CHOLESTEROL 109.4 MG/DL (<100); NON-HDL-C 136 MG/DL; POTASSIUM SERUM 4.4 MMOL/L (3.5-5.1); SODIUM LEVEL 142 MMOL/L (136-145); TOTAL PROTEIN 6.6 G/DL (5.7-8.2); TRIGLYCERIDES LEVEL 135 MG/DL (<150)
== END ==
LOC: M LAB REF 16:20
PROVIDERS: ATTEND Family Medicine Addiction Medicine
DX: I10 Essential (primary) hypertension (principal)

== ENCOUNTER 2022-07-13 15:05 | Emergency (ER) | payer OTHER ==
[~2022-07-13] VITALS: Ht 167.6 cm; Wt 76.4 kg
[2022-07-13 15:05] VITALS: BP 163/96
== END 2022-07-13 21:51 | disposition left against medical advice (07) ==
LOC: M ED 20:33
DX: Z53.21 Procedure and treatment not carried out due to patient leaving prior to being seen by health care provider (principal)

== ENCOUNTER → 2022-07-13 | Outpatient (CLI) | payer OTHER | LOC: M PAIN 13:45 | PROVIDERS: ATTEND Nurse Practitioner Family | DX: M51.16 Intervertebral disc disorders with radiculopathy, lumbar region (principal); Z79.01 Long term (current) use of anticoagulants; Z79.891 Long term (current) use of opiate analgesic; Z79.899 Other long term (current) drug therapy ==

== ENCOUNTER → 2022-07-14 | Outpatient (CLI) | payer OTHER | LOC: M SOG 09:31 | PROVIDERS: ATTEND Orthopaedic Surgery | DX: M51.17 Intervertebral disc disorders with radiculopathy, lumbosacral region (principal); M51.16 Intervertebral disc disorders with radiculopathy, lumbar region ==

== ENCOUNTER → 2022-07-31 | Outpatient (CLI) | payer OTHER | LOC: M RAD 13:57 | PROVIDERS: ATTEND Orthopaedic Surgery | DX: M47.894 Other spondylosis, thoracic region (principal); M47.896 Other spondylosis, lumbar region; M51.16 Intervertebral disc disorders with radiculopathy, lumbar region ==

== ENCOUNTER 2022-08-10 13:53 | Emergency (ER) | payer OTHER ==
[~2022-08-10] VITALS: Ht 170.2 cm; Wt 79.5 kg
[2022-08-10 13:53] VITALS: BP 139/87
[2022-08-10] MEDS ORDERED: LIDOCAINE 5% (LIDODERM) PATCH TD ONE (18:15)
[2022-08-10] MEDS ORDERED: predniSONE 20 MG TAB PO ONE (18:15)
[2022-08-10] MEDS ORDERED: diazePAM 5MG TABLET PO ONE (18:15)
[2022-08-10] MEDS ORDERED: METH-1165 PO (19:05)
[2022-08-10] MEDS ORDERED: LIDO5DIS41 TD (19:05)
[2022-08-10] MEDS ORDERED: PRED20TA PO (19:05)
== END 2022-08-10 19:11 | disposition home or self-care (01) ==
LOC: M ED 13:53
DX: G89.29 Other chronic pain (principal); M54.9 Dorsalgia, unspecified; I10 Essential (primary) hypertension; F41.9 Anxiety disorder, unspecified; F32.9 Major depressive disorder, single episode, unspecified; Z86.711 Personal history of pulmonary embolism; Z86.718 Personal history of other venous thrombosis and embolism; F12.10 Cannabis abuse, uncomplicated; Z79.01 Long term (current) use of anticoagulants; Z79.899 Other long term (current) drug therapy
CPT/HCPCS: 99282; J7512

== ENCOUNTER → 2022-09-07 | Outpatient (CLI) | payer OTHER ==
[~2022-09-07] MED LIST changes: +LIDO5DIS41 TD; +METH-1165 PO; +PRED20TA PO
== END ==
LOC: M PLAIMG 08:51
PROVIDERS: ATTEND Nurse Practitioner Family
DX: M51.16 Intervertebral disc disorders with radiculopathy, lumbar region (principal)

== ENCOUNTER → 2022-10-01 | Outpatient (CLI) | payer OTHER | LOC: M PAIN 14:15 | PROVIDERS: ATTEND Nurse Practitioner Family | DX: M51.16 Intervertebral disc disorders with radiculopathy, lumbar region (principal); Z79.01 Long term (current) use of anticoagulants; Z79.899 Other long term (current) drug therapy ==

== ENCOUNTER → 2022-10-15 | Outpatient (CLI) | payer OTHER | LOC: M PAIN 11:00 | PROVIDERS: ATTEND Nurse Practitioner Family | DX: M79.18 Myalgia, other site (principal); M54.50 Low back pain, unspecified; Z79.01 Long term (current) use of anticoagulants; Z79.899 Other long term (current) drug therapy ==

== ENCOUNTER → 2022-11-04 | Outpatient (CLI) | payer OTHER ==
[~2022-11-04] MED LIST changes: +BUPIVACAINE HCL 0.25% 10ML VIAL As Ordered ONE; +BUPIVACAINE HCL 0.25% 30ML VIAL As Ordered ONE; +NORCO, ANEXSIA 5/325MG TABLET (HYDROcodone/ACETAMINOPHEN) As Ordered ONE; +TRIAMCINOLONE ACETONIDE SUSP 40MG/ML 1ML VIAL As Ordered ONE; +diazePAM 5MG TABLET As Ordered ONE
== END ==
LOC: M PAIN 10:30
PROVIDERS: ATTEND Anesthesiology
DX: M79.18 Myalgia, other site (principal); Z79.01 Long term (current) use of anticoagulants; Z79.899 Other long term (current) drug therapy
CPT/HCPCS: 20553; J3301; S0020

== ENCOUNTER → 2022-11-12 | Outpatient (CLI) | payer OTHER ==
[~2022-11-12] MED LIST changes: -BUPIVACAINE HCL 0.25% 10ML VIAL As Ordered ONE; -BUPIVACAINE HCL 0.25% 30ML VIAL As Ordered ONE; -NORCO, ANEXSIA 5/325MG TABLET (HYDROcodone/ACETAMINOPHEN) As Ordered ONE; -TRIAMCINOLONE ACETONIDE SUSP 40MG/ML 1ML VIAL As Ordered ONE; -diazePAM 5MG TABLET As Ordered ONE
== END ==
LOC: M PAIN 15:30
PROVIDERS: ATTEND Nurse Practitioner Family
DX: M79.18 Myalgia, other site (principal); M51.16 Intervertebral disc disorders with radiculopathy, lumbar region; G89.29 Other chronic pain; M54.50 Low back pain, unspecified; Z79.01 Long term (current) use of anticoagulants; Z79.899 Other long term (current) drug therapy

== ENCOUNTER → 2022-11-29 | Outpatient (CLI) | payer OTHER ==
[2022-11-29 17:59] LABS: BASO % 0.1 % (0.0-1.0); HEMOGLOBIN 13.3 g/dl (13.5-17.5); LYMPH # 1.2 10^3/uL (1.5-5.0); LYMPH % 6.9 % (24.0-44.0); MEAN CORPUSCULAR HEMOGLOBIN 30.4 pg (27.0-33.0); MEAN CORPUSCULAR HGB CONC 33.3 g/dl (32.0-36.5); MEAN CORPUSCULAR VOLUME 91.5 fl (80.0-96.0); MONO # 0.7 10^3/uL (0.0-0.8); MONO % 3.7 % (2.0-8.0); NEUTROPHILS # 15.8 10^3/uL (1.5-8.5); NEUTROPHILS % 88.6 % (36.0-66.0); PLATELET COUNT, AUTOMATED 162 10^3/uL (150-450); RED BLOOD COUNT 4.37 10^6/uL (4.30-6.10); WHITE BLOOD COUNT 17.8 10^3/uL (4.0-10.0)
[2022-11-29 18:18] LABS: ALBUMIN 4.1 G/DL (3.2-5.2); ALKALINE PHOSPHATASE 78 U/L (46-116); ALT/SGPT 14 U/L (7.0-40); AST/SGOT 10 U/L (<34); BILIRUBIN,TOTAL 0.4 MG/DL (0.3-1.2); BLOOD UREA NITROGEN 12 MG/DL (9-23); CALCIUM LEVEL 9.2 MG/DL (8.5-10.1); CARBON DIOXIDE LEVEL 28 MMOL/L (20-31); CHLORIDE LEVEL 105 MMOL/L (98-107); CREATININE FOR GFR 0.85 MG/DL (0.70-1.30); GLOMERULAR FILTRATION RATE > 60.0 (>56); GLUCOSE, FASTING 94 MG/DL (60-100); POTASSIUM SERUM 3.9 MMOL/L (3.5-5.1); SODIUM LEVEL 139 MMOL/L (136-145); TOTAL PROTEIN 6.8 G/DL (5.7-8.2)
== END ==
LOC: M RAD 14:21
PROVIDERS: ATTEND Family Medicine Addiction Medicine
DX: R93.7 Abnormal findings on diagnostic imaging of other parts of musculoskeletal system (principal)

== ENCOUNTER → 2022-12-21 | Outpatient (CLI) | payer OTHER ==
[~2022-12-21] MED LIST changes: +PROHANCE 279.3MG/ML 15ML VIAL ONE
== END ==
LOC: M PLAIMG 07:10
PROVIDERS: ATTEND Family Medicine Addiction Medicine
DX: R93.7 Abnormal findings on diagnostic imaging of other parts of musculoskeletal system (principal)
CPT/HCPCS: 72197; A9576

== ENCOUNTER → 2022-12-24 | Outpatient (CLI) | payer OTHER ==
[~2022-12-24] MED LIST changes: -PROHANCE 279.3MG/ML 15ML VIAL ONE
== END ==
LOC: M PAIN 09:00
PROVIDERS: ATTEND Nurse Practitioner Family
DX: M25.552 Pain in left hip (principal); M51.16 Intervertebral disc disorders with radiculopathy, lumbar region; Z79.01 Long term (current) use of anticoagulants; Z79.899 Other long term (current) drug therapy

== ENCOUNTER 2022-12-30 16:37 | Emergency (ER) | payer OTHER ==
[~2022-12-30] VITALS: Ht 170.2 cm; Wt 73.7 kg
[2022-12-30 16:37] VITALS: BP 125/85; TEMP 98.1; O2SAT 100
[~2022-12-30 16:37] MED LIST changes: +ALBU6.7H6 INH; +PREG50CA PO; +TIZA10TA PO
== END 2022-12-30 19:45 | disposition left against medical advice (07) ==
LOC: M ED 16:37
DX: Z53.21 Procedure and treatment not carried out due to patient leaving prior to being seen by health care provider (principal)

== ENCOUNTER → 2023-01-06 | Outpatient (CLI) | payer OTHER | LOC: M RAD 08:53 | PROVIDERS: ATTEND Family Medicine Addiction Medicine | DX: R93.7 Abnormal findings on diagnostic imaging of other parts of musculoskeletal system (principal) | CPT/HCPCS: 78306; A9503 ==

== ENCOUNTER → 2023-01-20 | Outpatient (CLI) | payer OTHER | LOC: M PAIN 16:15 | PROVIDERS: ATTEND Nurse Practitioner Family | DX: M25.552 Pain in left hip (principal); Z79.891 Long term (current) use of opiate analgesic; M51.16 Intervertebral disc disorders with radiculopathy, lumbar region; G89.29 Other chronic pain; Z79.01 Long term (current) use of anticoagulants; Z79.899 Other long term (current) drug therapy ==

== ENCOUNTER → 2023-02-01 | Outpatient (CLI) | payer OTHER | LOC: M PAIN 11:45 | PROVIDERS: ATTEND Nurse Practitioner Family | DX: M25.552 Pain in left hip (principal); M51.16 Intervertebral disc disorders with radiculopathy, lumbar region; Z79.01 Long term (current) use of anticoagulants; Z79.899 Other long term (current) drug therapy; Z79.891 Long term (current) use of opiate analgesic ==

== ENCOUNTER → 2023-02-22 | Outpatient (CLI) | payer OTHER | LOC: M PAIN 15:00 | PROVIDERS: ATTEND Nurse Practitioner Family | DX: M25.552 Pain in left hip (principal); M51.16 Intervertebral disc disorders with radiculopathy, lumbar region; Z86.711 Personal history of pulmonary embolism; Z86.718 Personal history of other venous thrombosis and embolism; Z79.01 Long term (current) use of anticoagulants; Z79.899 Other long term (current) drug therapy ==

== ENCOUNTER → 2023-03-15 | Outpatient (CLI) | payer OTHER | LOC: M PAIN 10:15 | PROVIDERS: ATTEND Nurse Practitioner Family | DX: M25.552 Pain in left hip (principal); Z79.891 Long term (current) use of opiate analgesic; M51.16 Intervertebral disc disorders with radiculopathy, lumbar region; M54.50 Low back pain, unspecified; M79.662 Pain in left lower leg; Z79.01 Long term (current) use of anticoagulants; Z79.899 Other long term (current) drug therapy ==

== ENCOUNTER → 2023-03-30 | Outpatient (CLI) | payer OTHER | LOC: M SOG 08:45 | PROVIDERS: ATTEND Orthopaedic Surgery | DX: M25.552 Pain in left hip (principal) ==

== ENCOUNTER → 2023-04-04 | Outpatient (CLI) | payer OTHER ==
[2023-04-04 09:15] LABS: BASO % 0.4 % (0.0-1.0); EOS # 0.2 10^3/uL (0.0-0.5); HEMATOCRIT 42.8 % (42.0-52.0); HEMOGLOBIN 14.7 g/dl (13.5-17.5); LYMPH # 1.8 10^3/uL (1.5-5.0); MEAN CORPUSCULAR HEMOGLOBIN 31.5 pg (27.0-33.0); MEAN CORPUSCULAR HGB CONC 34.3 g/dl (32.0-36.5); MEAN CORPUSCULAR VOLUME 91.8 fl (80.0-96.0); MONO # 0.7 10^3/uL (0.0-0.8); MONO % 6.5 % (2.0-8.0); NEUTROPHILS # 8.5 10^3/uL (1.5-8.5); NEUTROPHILS % 74.6 % (36.0-66.0); PLATELET COUNT, AUTOMATED 259 10^3/uL (150-450); RED BLOOD COUNT 4.66 10^6/uL (4.30-6.10); WHITE BLOOD COUNT 11.4 10^3/uL (4.0-10.0)
[2023-04-04 09:21] LABS: ALBUMIN 3.8 G/DL (3.2-5.2); ALKALINE PHOSPHATASE 87 U/L (46-116); ALT/SGPT 12 U/L (7.0-40); AST/SGOT 14 U/L (<34); BILIRUBIN,TOTAL 0.4 MG/DL (0.3-1.2); BLOOD UREA NITROGEN 13 MG/DL (9-23); CALCIUM LEVEL 9.4 MG/DL (8.5-10.1); CARBON DIOXIDE LEVEL 30 MMOL/L (20-31); CHLORIDE LEVEL 108 MMOL/L (98-107); CREATININE FOR GFR 0.98 MG/DL (0.70-1.30); GLOMERULAR FILTRATION RATE > 60.0 (>56); GLUCOSE, FASTING 99 MG/DL (60-100); POTASSIUM SERUM 4.1 MMOL/L (3.5-5.1); SODIUM LEVEL 140 MMOL/L (136-145); TOTAL PROTEIN 6.7 G/DL (5.7-8.2)
[2023-04-04 09:23] LABS: TOTAL 25(OH) VITAMIN D 32.5 NG/ML (20.0-100.0)
[2023-04-04 09:32] LABS: HEMOGLOBIN A1c 4.7 % (4.0-6.0)
[2023-04-04 10:20] LABS: ERYTHROCYTE SEDIMENTATION RATE 15 mm/hr (0-20)
== END ==
LOC: M LAB 08:24
PROVIDERS: ATTEND Orthopaedic Surgery
DX: M25.552 Pain in left hip (principal); M87.852 Other osteonecrosis, left femur

== ENCOUNTER → 2023-04-29 | Outpatient (CLI) | payer OTHER ==
[~2023-04-29] MED LIST changes: +ALBU8.5H INH; +CEFA500C2 PO; -ELIQ5TAB; +ELIQ5TAB PO; -HYDR12.55; +HYDR12.55 PO; -LEXA1TAB; +LEXA1TAB PO; -LOSA25TA13; +LOSA25TA13 PO; +LOSA50TA28 PO; +MORP15TA2 PO; +OXYC-517 PO; +PREG200C2 PO
== END ==
LOC: M PAIN 17:00
PROVIDERS: ATTEND Nurse Practitioner Family
DX: M25.552 Pain in left hip (principal); M54.50 Low back pain, unspecified; G89.29 Other chronic pain; Z79.01 Long term (current) use of anticoagulants; Z79.891 Long term (current) use of opiate analgesic; Z79.899 Other long term (current) drug therapy

== ENCOUNTER → 2023-05-02 | Outpatient (CLI) | payer OTHER ==
[~2023-05-02] MED LIST changes: -CEFA500C2 PO; -OXYC-517 PO
== END ==
LOC: M RAD 17:40
PROVIDERS: ATTEND Orthopaedic Surgery
DX: M87.852 Other osteonecrosis, left femur (principal)

== ENCOUNTER 2023-05-04 09:50 | Outpatient (RCR) | payer OTHER ==
[2023-05-11] MEDS ORDERED: CEFA500C2 PO (08:03)
[2023-05-11] MEDS ORDERED: OXYC-517 PO (08:03)
== END 2023-05-26 ==
LOC: M PT 09:50
PROVIDERS: ATTEND Orthopaedic Surgery
DX: M25.552 Pain in left hip (principal); M87.852 Other osteonecrosis, left femur

== ENCOUNTER 2023-05-10 06:20 | Observation (INO) | payer OTHER ==
[2023-05-10] VITALS (7 sets, daily range): BP systolic 138–172; BP diastolic 85–96; TEMP 97.9–98.6; O2SAT 94–97
[~2023-05-10] VITALS: Ht 170.2 cm; Wt 77.6 kg
[~2023-05-10 06:20] MED LIST changes: +ROPIVA 100MG/KETOR 15MG/EPINEPHRINE 0.3MG IN NS 50ML SYRINGE PA ONE
[2023-05-10] MEDS ORDERED: TRANEXAMIC ACID 100 MG/ML 10ML VIAL As Ordered ONE (06:47)
[2023-05-10] MEDS ORDERED: VANCOMYCIN 1000MG/20ML VIAL As Ordered ONE (06:48)
[2023-05-10] MEDS ORDERED: LR 1,000 ML IV SCH (06:55)
[2023-05-10] MEDS ORDERED: SUGAMMADEX SODIUM 500 MG/5 ML VIAL (BRIDION) As Ordered ONE (06:57)
[2023-05-10] MEDS ORDERED: propofoL 200 MG/20 ML VIAL As Ordered ONE (06:57)
[2023-05-10] MEDS ORDERED: ROCURONIUM BROMIDE 50MG/5ML VIAL As Ordered ONE ×2 (06:57→08:26)
[2023-05-10] MEDS ORDERED: ONDANSETRON 4MG 2ML VIAL As Ordered ONE (06:57)
[2023-05-10] MEDS ORDERED: LIDOCAINE 2% 100MG/5ML SDV (FOR ANES.) As Ordered ONE (06:57)
[2023-05-10] MEDS ORDERED: fentaNYL 250 MCG/5 ML INJECTION As Ordered ONE (07:07)
[2023-05-10] MEDS ORDERED: MIDAZOLAM INJ 2MG/2ML VIAL As Ordered ONE (07:08)
[2023-05-10] MEDS ORDERED: ceFAZolin SOD 2 GM in IV 1 EA IV ONE (07:20)
[2023-05-10] MEDS ORDERED: GLYCOPYRROLATE INJ 0.2 MG/ML 2 ML VIAL As Ordered ONE (08:32)
[2023-05-10] MEDS ORDERED: HYDROmorphone HCL 2MG/ML 1ML VIAL As Ordered ONE (09:08)
[2023-05-10] MEDS ORDERED: ACETAMINOPHEN 1000MG 100ML IV BAG As Ordered ONE (09:10)
[2023-05-10] MEDS ORDERED: SENNA 8.6 MG TAB (SENOKOT) PO PRN (10:55)
[2023-05-10] MEDS ORDERED: oxyCODONE 5MG TAB PO PRN (10:55)
[2023-05-10] MEDS ORDERED: ONDANSETRON 4MG 2ML VIAL IV PRN ×2 (10:55→11:30)
[2023-05-10] MEDS ORDERED: ALBUTEROL 90 MCG/ACT 8GM HFA INHALER INH PRN (11:00)
[2023-05-10] MEDS ORDERED: fentaNYL 100 MCG/2 ML INJECTION IV PRN (11:30)
[2023-05-10] MEDS: MORPHINE 2 MG/ML 1ML VIAL IV PRN ×2 (11:41→12:09)
[2023-05-10] MEDS: oxyCODONE 5MG TAB PO PRN ×3 (11:47→21:12)
[2023-05-10] MEDS: LR 1,000 ML IV SCH ×2 (13:06→20:55)
[2023-05-10] MEDS ORDERED: MED REC IN PROGRESS XX SCH (15:25)
[2023-05-10] MEDS: ceFAZolin SOD 2 GM in IV 1 EA IV SCH (15:34)
[2023-05-10] MEDS ORDERED: HOME MED LIST COMPLETE! XX SCH (16:25)
[2023-05-10] MEDS: ACETAMINOPHEN TAB 650MG DOSE (2X325MG) PO SCH (18:06)
[2023-05-10] MEDS: LOSARTAN 50MG TABLET PO SCH (18:08)
[2023-05-10] MEDS: DOCUSATE SODIUM 100MG CAPSULE PO SCH (21:10)
[2023-05-11] MEDS: ceFAZolin SOD 2 GM in IV 1 EA IV SCH (00:47)
[2023-05-11] MEDS: ACETAMINOPHEN TAB 650MG DOSE (2X325MG) PO SCH ×3 (00:48→11:15)
[2023-05-11] MEDS: oxyCODONE 5MG TAB PO PRN ×2 (01:24→06:30)
[2023-05-11 02:00] VITALS: BP 148/92; TEMP 99.1; O2SAT 95
[2023-05-11 05:45] LABS: HEMATOCRIT 30.6 % (42.0-52.0); HEMOGLOBIN 10.6 g/dl (13.5-17.5); MEAN CORPUSCULAR HEMOGLOBIN 31.2 pg (27.0-33.0); MEAN CORPUSCULAR HGB CONC 34.6 g/dl (32.0-36.5); PLATELET COUNT, AUTOMATED 187 10^3/uL (150-450); WHITE BLOOD COUNT 14.5 10^3/uL (4.0-10.0)
[2023-05-11 06:00] VITALS: BP 144/98; TEMP 99; O2SAT 94
[2023-05-11 06:04] LABS: INR 1.1; PROTHROMBIN TIME 13.9 SECONDS (12.5-14.5)
[2023-05-11 06:09] LABS: ALKALINE PHOSPHATASE 65 U/L (46-116); ALT/SGPT 11 U/L (7.0-40); AST/SGOT 21 U/L (<34); BILIRUBIN,TOTAL 0.5 MG/DL (0.3-1.2); BLOOD UREA NITROGEN 10 MG/DL (9-23); CALCIUM LEVEL 8.3 MG/DL (8.5-10.1); CARBON DIOXIDE LEVEL 29 MMOL/L (20-31); CHLORIDE LEVEL 104 MMOL/L (98-107); CREATININE FOR GFR 1.02 MG/DL (0.70-1.30); GLOMERULAR FILTRATION RATE > 60.0 (>56); GLUCOSE, FASTING 90 MG/DL (60-100); PHOSPHORUS LEVEL 3.9 MG/DL (2.5-4.9); SODIUM LEVEL 140 MMOL/L (136-145); TOTAL PROTEIN 5.6 G/DL (5.7-8.2)
[2023-05-11] MEDS: LR 1,000 ML IV SCH (06:55)
[2023-05-11] MEDS ORDERED: APIXABAN 5 MG TAB (ELIQUIS) PO SCH (07:00)
[2023-05-11] MEDS ORDERED: CEFA500C2 PO (08:03)
[2023-05-11] MEDS ORDERED: OXYC-517 PO (08:03)
[2023-05-11] MEDS: DOCUSATE SODIUM 100MG CAPSULE PO SCH (08:24)
[2023-05-11 08:25] VITALS: BP 151/90
[2023-05-11] MEDS: LOSARTAN 50MG TABLET PO SCH (08:25)
[2023-05-11] MEDS ORDERED: ASCORBIC ACID 500 MG TAB PO SCH (09:00)
[2023-05-11] MEDS ORDERED: FERROUS SULFATE 325MG TAB PO SCH (09:00)
[2023-05-11] MEDS ORDERED: hydroCHLOROthiazide 12.5 MG CAPSULE PO SCH (09:00)
[2023-05-11] MEDS ORDERED: ESCITALOPRAM OXALATE 10 MG TAB (LEXAPRO) PO SCH (09:00)
== END 2023-05-11 12:00 | disposition home or self-care (01) ==
LOC: M SDC 06:20 → M MS5PR 06:21
PROVIDERS: ADMIT Orthopaedic Surgery; ATTEND Orthopaedic Surgery
DX: M87.052 Idiopathic aseptic necrosis of left femur (principal); I10 Essential (primary) hypertension; R06.83 Snoring; F41.9 Anxiety disorder, unspecified; F32.A Depression, unspecified; Z86.711 Personal history of pulmonary embolism; Z86.718 Personal history of other venous thrombosis and embolism; Z79.899 Other long term (current) drug therapy; Z79.01 Long term (current) use of anticoagulants; Z79.891 Long term (current) use of opiate analgesic
CPT/HCPCS: 27130; 36415; 72170; 76000; 80053; 80069; 85027; 85610; 87635; 88304; 93005; 96374; 96376; 97161; 97165; 97535; C1776; J0131; J0690; J1100; J1170; J2250; J2405; J3010; J3370; S2900

== ENCOUNTER → 2023-05-18 | Outpatient (CLI) | payer OTHER ==
[~2023-05-18] MED LIST changes: +CEFA500C2 PO; +OXYC-517 PO; -ROPIVA 100MG/KETOR 15MG/EPINEPHRINE 0.3MG IN NS 50ML SYRINGE PA ONE
== END ==
LOC: M SOG 07:53
PROVIDERS: ATTEND Orthopaedic Surgery
DX: Z47.1 Aftercare following joint replacement surgery (principal)

== ENCOUNTER → 2023-06-03 | Outpatient (REF) | payer OTHER ==
[2023-06-03 14:57] LABS: ALBUMIN 3.5 G/DL (3.2-5.2); ALKALINE PHOSPHATASE 117 U/L (46-116); ALT/SGPT 15 U/L (7.0-40); AST/SGOT 10 U/L (<34); BILIRUBIN,TOTAL 0.3 MG/DL (0.3-1.2); BLOOD UREA NITROGEN 10 MG/DL (9-23); CARBON DIOXIDE LEVEL 28 MMOL/L (20-31); CHLORIDE LEVEL 103 MMOL/L (98-107); CREATININE FOR GFR 0.85 MG/DL (0.70-1.30); GLOMERULAR FILTRATION RATE > 60.0 (>56); GLUCOSE, FASTING 104 MG/DL (60-100); IRON (FE) 52 UG/DL (65-175); POTASSIUM SERUM 3.7 MMOL/L (3.5-5.1); SODIUM LEVEL 137 MMOL/L (136-145); TOTAL 25(OH) VITAMIN D 24.4 NG/ML (20.0-100.0); TOTAL PROTEIN 6.6 G/DL (5.7-8.2)
[2023-06-03 15:18] LABS: BASO # 0.1 10^3/uL (0.0-0.2); BASO % 0.5 % (0.0-1.0); EOS # 0.2 10^3/uL (0.0-0.5); EOS % 1.8 % (0.0-3.0); HEMATOCRIT 40.6 % (42.0-52.0); HEMOGLOBIN 13.4 g/dl (13.5-17.5); LYMPH # 1.9 10^3/uL (1.5-5.0); LYMPH % 17.5 % (24.0-44.0); MEAN CORPUSCULAR HEMOGLOBIN 30.3 pg (27.0-33.0); MEAN CORPUSCULAR VOLUME 91.9 fl (80.0-96.0); MONO # 0.7 10^3/uL (0.0-0.8); MONO % 6.2 % (2.0-8.0); NEUTROPHILS # 7.8 10^3/uL (1.5-8.5); NEUTROPHILS % 73.6 % (36.0-66.0); PLATELET COUNT, AUTOMATED 297 10^3/uL (150-450); RED BLOOD COUNT 4.42 10^6/uL (4.30-6.10); WHITE BLOOD COUNT 10.6 10^3/uL (4.0-10.0)
== END ==
LOC: M LAB REF 12:32
PROVIDERS: ATTEND Family Medicine Addiction Medicine
DX: D64.9 Anemia, unspecified (principal); E83.51 Hypocalcemia

== ENCOUNTER → 2023-07-01 | Outpatient (CLI) | payer OTHER | LOC: M SOG 07:50 | PROVIDERS: ATTEND Orthopaedic Surgery | DX: Z96.642 Presence of left artificial hip joint (principal); Z47.1 Aftercare following joint replacement surgery; Z53.9 Procedure and treatment not carried out, unspecified reason ==

== ENCOUNTER → 2023-07-07 | Outpatient (REF) | LOC: M PLAIMG 11:55 | PROVIDERS: ATTEND Internal Medicine | DX: M54.2 Cervicalgia (principal); Z98.1 Arthrodesis status ==

== ENCOUNTER → 2023-09-06 | Outpatient (CLI) | payer MEDICAID, OTHER | LOC: M RAD 09:33 | PROVIDERS: ATTEND Family Medicine Addiction Medicine | DX: M25.551 Pain in right hip (principal) ==

== ENCOUNTER 2023-11-17 08:43 | Day surgery (SDC) | payer MEDICAID, OTHER ==
[~2023-11-17] VITALS: Ht 170.2 cm; Wt 68.9 kg
[~2023-11-17 08:43] MED LIST changes: +AMOX500C PO
[2023-11-17] MEDS: NS 1,000 ML IV ONE (09:01)
[2023-11-17] MEDS ORDERED: fentaNYL 100 MCG/2 ML INJECTION As Ordered ONE (09:19)
[2023-11-17] MEDS ORDERED: LIDOCAINE 2% 100MG/5ML SDV (FOR ANES.) As Ordered ONE (09:20)
[2023-11-17] MEDS ORDERED: propofoL 200 MG/20 ML VIAL As Ordered ONE (09:20)
[2023-11-17 09:52] VITALS: TEMP 98
[2023-11-17 10:10] VITALS: BP 120/79; O2SAT 96
== END 2023-11-17 10:19 | disposition home or self-care (01) ==
LOC: M OPP 08:43
PROVIDERS: ATTEND Internal Medicine Gastroenterology
DX: Z12.11 Encounter for screening for malignant neoplasm of colon (principal); Z80.0 Family history of malignant neoplasm of digestive organs; K64.8 Other hemorrhoids; K57.30 Diverticulosis of large intestine without perforation or abscess without bleeding; R12 Heartburn; I10 Essential (primary) hypertension; Z79.01 Long term (current) use of anticoagulants; Z79.2 Long term (current) use of antibiotics; Z79.51 Long term (current) use of inhaled steroids; Z79.891 Long term (current) use of opiate analgesic; Z79.899 Other long term (current) drug therapy
CPT/HCPCS: 43235; 45385; 88305; J3010

== ENCOUNTER 2023-11-27 17:26 | Emergency (ER) | payer OTHER ==
[~2023-11-27] VITALS: Ht 170.2 cm; Wt 75.3 kg
[2023-11-27 18:01] LABS: VENOUS BASE EXCESS -1.8 (-2.0-2.0); VENOUS HCO3 23.7 MMOL/L (23.0-27.0); VENOUS O2 SATURATION 98.4 % (60.0-80.0); VENOUS PARTIAL PRESSURE CO2 42.9 mmHg (38.0-50.0); VENOUS PARTIAL PRESSURE O2 122.4 mmHg (30.0-50.0)
[2023-11-27 18:09] LABS: BASO % 0.3 % (0.0-1.0); EOS # 0.2 10^3/uL (0.0-0.5); EOS % 2.3 % (0.0-3.0); HEMATOCRIT 36.9 % (42.0-52.0); HEMOGLOBIN 12.8 g/dl (13.5-17.5); LYMPH # 2.2 10^3/uL (1.5-5.0); LYMPH % 25.1 % (24.0-44.0); MEAN CORPUSCULAR HEMOGLOBIN 30.9 pg (27.0-33.0); MEAN CORPUSCULAR HGB CONC 34.7 g/dl (32.0-36.5); MEAN CORPUSCULAR VOLUME 89.1 fl (80.0-96.0); MONO # 0.6 10^3/uL (0.0-0.8); MONO % 6.9 % (2.0-8.0); NEUTROPHILS # 5.7 10^3/uL (1.5-8.5); NEUTROPHILS % 65.1 % (36.0-66.0); PLATELET COUNT, AUTOMATED 252 10^3/uL (150-450); RED BLOOD COUNT 4.14 10^6/uL (4.30-6.10); WHITE BLOOD COUNT 8.8 10^3/uL (4.0-10.0)
[2023-11-27 18:30] VITALS: TEMP 97.8
[2023-11-27 18:32] LABS: CK-MB VALUE MASS < 1.0 NG/ML (<3.6); ETHYL ALCOHOL (ETHANOL) 0.071 % (0.000-0.010)
[2023-11-27 18:34] LABS: ALBUMIN 3.9 G/DL (3.2-5.2); ALKALINE PHOSPHATASE 82 U/L (46-116); ALT/SGPT 12 U/L (7.0-40); AST/SGOT 9 U/L (<34); BILIRUBIN,DIRECT 0.2 MG/DL (<0.4); BILIRUBIN,TOTAL 0.5 MG/DL (0.3-1.2); BLOOD UREA NITROGEN 13 MG/DL (9-23); CARBON DIOXIDE LEVEL 26 MMOL/L (20-31); CHLORIDE LEVEL 106 MMOL/L (98-107); CREATININE FOR GFR 0.73 MG/DL (0.70-1.30); GLOMERULAR FILTRATION RATE > 60.0 (>56); GLUCOSE, FASTING 83 MG/DL (60-100); POTASSIUM SERUM 3.6 MMOL/L (3.5-5.1); SALICYLATE LEVEL < 3.0 MG/DL (<30); SODIUM LEVEL 139 MMOL/L (136-145); TOTAL PROTEIN 6.7 G/DL (5.7-8.2)
[2023-11-27 18:38] LABS: OSMOLALITY SERUM 300 MOSM/KG (275-295)
[2023-11-27 18:39] LABS: CPK CREATINE PHOSPHOKINASE 78 U/L (46-171); MB/CK RELATIVE INDEX 1.28 (< OR =4)
[2023-11-27] MEDS ORDERED: ISOVUE-370 76% 100ML VIAL ONE (18:47)
[2023-11-27 19:24] LABS: AMPHETAMINES LEVEL URINE NEGATIVE (NEGATIVE); BARBITURATES URINE NEGATIVE (NEGATIVE); BENZODIAZEPINES URINE NEGATIVE (NEGATIVE); COCAINE METABOLITE URINE NEGATIVE (NEGATIVE); METHADONE URINE NEGATIVE (NEGATIVE); OPIATES URINE NEGATIVE (NEGATIVE); PHENCYCLIDINE URINE NEGATIVE (NEGATIVE)
[2023-11-27 19:28] LABS: CK-MB VALUE MASS < 1.0 NG/ML (<3.6)
[2023-11-27 19:35] LABS: CPK CREATINE PHOSPHOKINASE 79 U/L (46-171); MB/CK RELATIVE INDEX 1.26 (< OR =4)
[2023-11-27 19:35] LABS: CANNABINOIDS URINE POSITIVE (NEGATIVE)
[2023-11-27] MEDS: PERCOCET 5MG/325MG TAB PO ONE (20:31)
[2023-11-27] MEDS ORDERED: PERC5TAB12 PO (21:02)
[2023-11-27 21:15] VITALS: BP 105/65; O2SAT 98
== END 2023-11-27 21:25 | disposition home or self-care (01) ==
LOC: M ED 17:26
DX: R55 Syncope and collapse (principal); G45.4 Transient global amnesia; G89.28 Other chronic postprocedural pain; Z96.649 Presence of unspecified artificial hip joint; Z98.1 Arthrodesis status; M47.892 Other spondylosis, cervical region; Z79.01 Long term (current) use of anticoagulants; Z79.899 Other long term (current) drug therapy
CPT/HCPCS: 70450; 71275; 72125; 74177; 80048; 80076; 80143; 80307; 82077; 82140; 82550; 82553; 82803; 83605; 83930; 84443; 84484; 85025; 93041; 94760; 99285; Q9967

== ENCOUNTER → 2023-12-21 | Outpatient (CLI) | payer OTHER | LOC: M PAL 07:44 | PROVIDERS: ATTEND Nurse Practitioner Adult Health | DX: M25.551 Pain in right hip (principal); M25.552 Pain in left hip; G89.29 Other chronic pain; Z51.5 Encounter for palliative care; Z79.899 Other long term (current) drug therapy ==

== ENCOUNTER → 2023-12-23 | Outpatient (CLI) | payer OTHER | LOC: M SOG 07:58 | PROVIDERS: ATTEND Orthopaedic Surgery | DX: Z47.1 Aftercare following joint replacement surgery (principal); Z96.642 Presence of left artificial hip joint ==

== ENCOUNTER → 2023-12-28 | Outpatient (REF) | LOC: M PLAIMG 11:20 | PROVIDERS: ATTEND Internal Medicine | DX: Z96.642 Presence of left artificial hip joint (principal) ==

== ENCOUNTER → 2024-01-02 | Outpatient (CLI) | payer OTHER | LOC: M PLARAD 13:24 | PROVIDERS: ATTEND Nurse Practitioner Family | DX: M89.8X5 Other specified disorders of bone, thigh (principal) | CPT/HCPCS: 78816; A9552 ==